=== PATIENT | male | born 1970 | race Caucasian/White ===

== ENCOUNTER → 2017-09-21 | Outpatient (CLI) | payer MEDICARE ==
--- NOTE | 2017-09-21 12:28 | XR ---
EXAMINATION TYPE: XR chest 2V DATE OF EXAM: 09/21/2017 COMPARISON: NONE HISTORY: Chronic cough TECHNIQUE: Frontal and lateral views of the chest are obtained. FINDINGS: There is no focal air space opacity, pleural effusion, or pneumothorax seen. There is min imal pulmonary vascular congestion throughout. Cardiac silhouette is upper limits of normal. The card iac silhouette size is within normal limits. The osseous structures are intact. Moderate multilevel degenerative changes of thoracic spine are noted. IMPRESSION: 1. No focal consolidation to suggest pneumonia. 2. Mild pulmonary vascular congestion. Cardiac silhouette is upper limits of normal in size and there fore this could be related to congestive heart failure. Echocardiogram could be performed.
== END | disposition home or self-care (01) ==
LOC: RADXRMAIN 12:07
PROVIDERS: ATTEND Family Medicine
DX: R05 Cough (principal)
CPT/HCPCS: 71046

== ENCOUNTER → 2017-10-16 | Outpatient (CLI) | payer MEDICARE ==
--- NOTE | 2017-10-17 08:47 | ECHOF ---
Referral Reason:Cardiomegaly I51.7 MEASUREMENTS -------- HEIGHT: 167.6 cm WEIGHT: 129.3 kg BP: 173/79 RVIDd: 3.0 cm (< 3.3) IVSd: 1.4 cm (0.6 - 1.1) LVIDd: 4.2 cm (3.9 - 5.3) LVPWd: 1.4 cm (0.6 - 1.1) IVSs: 2.0 cm LVIDs: 2.9 cm LVPWs: 1.8 cm LA Diam: 3.4 cm (2.7 - 3.8) LAESV Index (A-L): 21.95 ml/m Ao Diam: 3.4 cm (2.0 - 3.7) AV Cusp: 2.2 cm (1.5 - 2.6) MV EXCURSION: 14.837 mm (> 18.000) MV EF SLOPE: 82 mm/s (70 - 150) EPSS: 0.9 cm MV E Bull: 1.10 m/s MV DecT: 182 ms MV A Bull: 0.86 m/s MV E/A Ratio: 1.28 RAP: 5.00 mmHg RVSP: 34.70 mmHg FINDINGS -------- Sinus rhythm. This was a technically difficult study with suboptimal views. The left ventricular size is normal. There is moderate concentric left ventricular hypertrophy. O verall left ventricular systolic function is normal with, an EF between 60 - 65 %. The right ventricle is normal in size. Normal LA size by volume 22+/-6 ml/m2. The right atrium is normal in size. 3 ml of Lumason was utilized for enhancement of images. The aortic valve is trileaflet and appears structurally normal. Mild mitral annular calcification present. Mild tricuspid regurgitation present. There is mild pulmonary hypertension. The right ventricular systolic pressure, as measured by Doppler, is 34.70mmHg. The pulmonic valve was not well visualized. The aortic root size is normal. IVC Not well visulized. There is no pericardial effusion. CONCLUSIONS -------- 1. Sinus rhythm. 2. This was a technically difficult study with suboptimal views. 3. The left ventricular size is normal. 4. There is moderate concentric left ventricular hypertrophy. 5. Overall left ventricular systolic function is normal with, an EF between 60 - 65 %. 6. The right ventricle is normal in size. 7. Normal LA size by volume 22+/-6 ml/m2. 8. The right atrium is normal in size. 9. 3 ml of Lumason was utilized for enhancement of images. 10. The aortic valve is trileaflet and appears structurally normal. 11. Mild mitral annular calcification present. 12. Mild tricuspid regurgitation present. 13. There is mild pulmonary hypertension. 14. The right ventricular systolic pressure, as measured by Doppler, is 34.70mmHg. 15. The pulmonic valve was not well visualized. 16. The aortic root size is normal. 17. IVC Not well visulized. 18. There is no pericardial effusion. DIRECTOR OF QUALITY: Marta Mariscal RDCS
== END | disposition home or self-care (01) ==
LOC: RADECHMAIN 14:36
PROVIDERS: ATTEND Family Medicine
DX: I07.1 Rheumatic tricuspid insufficiency (principal); I27.20 Pulmonary hypertension, unspecified
CPT/HCPCS: C8929; Q9950; 93306

== ENCOUNTER → 2020-12-28 | Outpatient (CLI) | payer MEDICARE ==
--- NOTE | 2020-12-28 13:39 | US ---
EXAMINATION TYPE: US venous doppler duplex LE LT DATE OF EXAM: 12/28/2020 1:12 PM COMPARISON: NONE CLINICAL HISTORY: R60.0 Localized edema. Skin redness bilateral LE. SIDE PERFORMED: left TECHNIQUE: The lower extremity deep venous system is examined utilizing real time linear array sonog tiana with graded compression, doppler sonography and color-flow sonography. VESSELS IMAGED: Common Femoral Vein Deep Femoral Vein Greater Saphenous Vein * Femoral Vein Popliteal Vein Small Saphenous Vein * Proximal Calf Veins (* superficial vessels) Left Leg: Negative for DVT. Left groin lymph node seen = 2.2 x 1.6 x 1.1cm. Edema channels are seen in anterior skin area of lower leg. IMPRESSION: 1. Left lower extremity ultrasound negative for deep venous thrombosis. 2. Left inguinal lymph node
== END | disposition home or self-care (01) ==
LOC: RADUSWWP 12:42
PROVIDERS: ATTEND Family Medicine
DX: R59.0 Localized enlarged lymph nodes (principal)

== ENCOUNTER → 2021-01-02 | Outpatient (CLI) | payer MEDICARE | END | disposition home or self-care (01) | LOC: RADMRIMAIN 08:36 | PROVIDERS: ATTEND Family Medicine | DX: Z53.9 Procedure and treatment not carried out, unspecified reason (principal) ==

== ENCOUNTER → 2021-05-03 | Outpatient (CLI) | payer MEDICARE ==
--- NOTE | 2021-05-03 16:38 | US ---
EXAMINATION TYPE: US groin LT DATE OF EXAM: 05/03/2021 COMPARISON: US CLINICAL HISTORY: R59.0 Localized enlarged lymph nodes. Follow up lymph node in left groin Left groin scanned. Largest lymph node measured with short axis = 0.7 cm. IMPRESSION: 1. Small Left inguinal lymph node
== END | disposition home or self-care (01) ==
LOC: RADUSWWP 12:08
PROVIDERS: ATTEND Family Medicine
DX: R59.0 Localized enlarged lymph nodes (principal)

== ENCOUNTER 2022-01-20 10:39 | Inpatient (IN) | payer MEDICARE ==
[2022-01-20] MEDS ORDERED: SODIUM CHLORIDE 0.9% 500 ML 500 ML IV STA (10:57)
[2022-01-20] MEDS ORDERED: KETOROLAC 15 MG/ML 1 ML VIAL IVP STA (10:57)
--- NOTE | 2022-01-20 10:58 | ED ---
Abdominal Pain HPI - General Chief Complaint: Abdominal Pain Stated Complaint: R side pain Time Seen by Provider: 01/20/22 10:47 Source: patient, RN notes reviewed, old records reviewed Mode of arrival: ambulatory Limitations: no limitations - History of Present Illness Initial Comments: This is a well-appearing 52-year-old male that presents to emergency room with complaints of right upper quadrant sharp abdominal pain radiating towards his mid abdomen. He states that he was just sitting at work on Thursday when the pain started. He denies any fevers, no nausea or vomiting but states he has had 2 episodes of diarrhea today. Patient has no previous surgical history. He does have a history of diabetes. MD Complaint: abdominal pain -: days(s) (4) Location: RUQ Radiation: other (Umbilical) Severity scale (1-10): 4 Quality: sharp Consistency: constant Improves With: nothing Worsens With: movement, other (Palpation) Associated Symptoms: diarrhea (twice today brown) - Related Data Home Medications Medication Instructions Recorded Confirmed Atorvastatin [Lipitor] 10 mg PO HS 01/20/22 01/20/22 Dulaglutide [Trulicity] 1.5 mg SQ MO@2100 01/20/22 01/20/22 Furosemide [Lasix] 20 mg PO HS 01/20/22 01/20/22 Gabapentin [Neurontin] 800 mg PO TID 01/20/22 01/20/22 Insulin Glargine,Hum.rec.anlog 114 units SQ HS 01/20/22 01/20/22 [Toujeo Max Solostar] Levothyroxine Sodium 25 mcg PO HS 01/20/22 01/20/22 Pioglitazone [Actos] 30 mg PO HS 01/20/22 01/20/22 cloNIDine HCL 0.1 mg PO TID 01/20/22 01/20/22 hydroCHLOROthiazide [Hydrodiuril] 25 mg PO HS 01/20/22 01/20/22 traMADol HCL 100 mg PO TID 01/20/22 01/20/22 Allergies Allergy/AdvReac Type Severity Reaction Status Date / Time melon Allergy Anaphylaxis Verified 01/20/22 13:53 NAKUL Inhibitors AdvReac Cough Verified 01/20/22 13:53 Review of Systems ROS Statement: Those systems with pertinent positive or pertinent negative responses have been documented in the HPI. ROS Other: All systems not noted in ROS Statement are negative. Past Medical History Past Medical History: Diabetes Mellitus History of Any Multi-Drug Resistant Organisms: None Reported Past Surgical History: No Surgical Hx Reported Past Psychological History: No Psychological Hx Reported Smoking Status: Never smoker Past Alcohol Use History: None Reported Past Drug Use History: None Reported General Exam Limitations: no limitations General appearance: alert, in no apparent distress Head exam: Present: atraumatic, normal inspection Eye exam: Absent: scleral icterus, conjunctival injection, periorbital swelling ENT exam: Present: normal oropharynx, mucous membranes moist Neck exam: Present: normal inspection, full ROM. Absent: tenderness, meningismus, lymphadenopathy Respiratory exam: Present: normal lung sounds bilaterally. Absent: respiratory distress, wheezes, rales, rhonchi, stridor, chest wall tenderness, accessory m uscle use, decreased breath sounds Cardiovascular Exam: Present: regular rate GI/Abdominal exam: Present: soft, tenderness (Right upper quadrant). Absent: distended, guarding, rigid, mass Extremities exam: Present: full ROM, normal capillary refill. Absent: tenderness, pedal edema Neurological exam: Present: alert, oriented X3, normal gait Psychiatric exam: Present: normal affect, normal mood Skin exam: Present: warm, dry, intact, normal color. Absent: cyanosis, diaphoretic, erythema, petechiae, pallor, mottled Course Vital Signs 01/20/22 10:41 Temperature 98.4 F Pulse Rate 94 Respiratory 18 Rate Blood Pressure 130/81 O2 Sat by Pulse 97 Oximetry Medical Decision Making - Medical Decision Making CT shows inflammatory changes in the right upper quadrant with a markedly dilated gallbladder favoring acute cholecystitis. There is evidence of leukocytosis with a total bili of 2.3. Patient is afebrile and vital signs are stable. No nausea or vomiting. He states the pain has improved however remains with palpation. I did speak with Dr. Victoria who recommended patient be admitted and placed on clear liquid diet for acute cholecystitis. Case discussed with Dr. Jeter - Lab Data Result diagrams: 01/20/22 11:10 01/20/22 11:10 Lab Results 01/20/22 01/20/22 01/20/22 Range/Units 11:10 11:10 11:10 WBC 16.7 H (3.8-10.6) k/uL RBC 5.49 (4.30-5.90) m/uL Hgb 16.0 (13.0-17.5) gm/dL Hct 47.2 (39.0-53.0) % MCV 86.0 (80.0-100.0) fL MCH 29.0 (25.0-35.0) pg MCHC 33.8 (31.0-37.0) g/dL RDW 15.5 (11.5-15.5) % Plt Count 213 (150-450) k/uL MPV 7.2 Neutrophils % 87 % Lymphocytes % 6 % Monocytes % 5 % Eosinophils % 1 % Basophils % 0 % Neutrophils # 14.6 H (1.3-7.7) k/uL Lymphocytes # 0.9 L (1.0-4.8) k/uL Monocytes # 0.8 (0-1.0) k/uL Eosinophils # 0.1 (0-0.7) k/uL Basophils # 0.1 (0-0.2) k/uL Sodium 137 (137-145) mmol/L Potassium 3.3 L (3.5-5.1) mmol/L Chloride 97 L (98-107) mmol/L Carbon Dioxide 26 (22-30) mmol/L Anion Gap 14 mmol/L BUN 23 H (9-20) mg/dL Creatinine 1.02 (0.66-1.25) mg/dL Est GFR (CKD-EPI)AfAm >90 (>60 ml/min/1.73 sqM) Est GFR (CKD-EPI)NonAf 84 (>60 ml/min/1.73 sqM) Glucose 130 H (74-99) mg/dL Plasma Lactic Acid Frankie 1.7 (0.7-2.0) mmol/L Calcium 8.6 (8.4-10.2) mg/dL Total Bilirubin 2.3 H (0.2-1.3) mg/dL AST 24 (17-59) U/L ALT 19 (4-49) U/L Alkaline Phosphatase 83 (38-126) U/L Total Protein 7.4 (6.3-8.2) g/dL Albumin 4.0 (3.5-5.0) g/dL Amylase 32 (30-110) U/L Lipase 25 (23-300) U/L Disposition Clinical Impression: Acute cholecystitis Disposition: ADMITTED IP TO THIS HOSP Decision Date: 01/20/22 Decision Time: 13:11
[2022-01-20 11:35] LABS: Basophils # (A) 0.1 k/uL (0-0.2); Basophils % (A) 0 %; Eosinophils # (A) 0.1 k/uL (0-0.7); Eosinophils % (A) 1 %; HCT 47.2 % (39.0-53.0); Lymphocytes # (A) 0.9 k/uL (1.0-4.8); Lymphocytes % (A) 6 %; MCHC 33.8 g/dL (31.0-37.0); Mean Platelet Volume 7.2; Monocytes # (A) 0.8 k/uL (0-1.0); Monocytes % (A) 5 %; Neutrophils # (A) 14.6 k/uL (1.3-7.7); Neutrophils % (A) 87 %; Platelet Count 213 k/uL (150-450); RBC 5.49 m/uL (4.30-5.90); RDW 15.5 % (11.5-15.5); WBC 16.7 k/uL (3.8-10.6)
[2022-01-20 11:59] LABS: ALT 19 U/L (4-49); AST 24 U/L (17-59); African American GFR (CKD) >90 (>60 ml/min/1.73 sqM); Alkaline Phosphatase 83 U/L (38-126); Amylase 32 U/L (30-110); Anion Gap 14 mmol/L; Blood Urea Nitrogen 23 mg/dL (9-20); Calcium 8.6 mg/dL (8.4-10.2); Carbon Dioxide 26 mmol/L (22-30); Chloride 97 mmol/L (98-107); Glucose 130 mg/dL (74-99); Lipase 25 U/L (23-300); Non-African American GFR(CKD) 84 (>60 ml/min/1.73 sqM); Potassium 3.3 mmol/L (3.5-5.1); Sodium 137 mmol/L (137-145); Total Bilirubin 2.3 mg/dL (0.2-1.3); Total Protein 7.4 g/dL (6.3-8.2)
--- NOTE | 2022-01-20 12:46 | CT ---
EXAMINATION TYPE: CT abdomen pelvis w con DATE OF EXAM: 01/20/2022 COMPARISON: Pain HISTORY: Right upper quadrant pain CT DLP: 2525.1 mGycm Automated exposure control for dose reduction was used. CONTRAST: CT scan of the abdomen pelvis is performed with IV Contrast, patient injected with 100 mL of Isovue 3 00. FINDINGS- LUNG BASES-subsegmental consolidation bilateral lung bases correlate for atelectasis.. LIVER/GB-gallbladder markedly distended with numerous gallstones. There is some. He gallbladder infla mmatory change. This abuts up against the region of the splenic flexure of the colon. Question small amount of pericholecystic fluid. Calcifications in the left lobe of the liver PANCREAS- No gross abnormality is seen. Atrophy of the pancreatic head. SPLEEN- No gross abnormality is seen. Small accessory spleen noted. ADRENALS- No gross abnormality is seen. KIDNEYS/BLADDER- no hydronephrosis nephrolithiasis or renal mass. BOWEL-bowel gas pattern nonspecific with no obstruction. There is inflammatory change adjacent to the duodenum and splenic flexure of the colon most likely related to the gallbladder. LYMPH NODES- No greater than 1cm abdominal or pelvic lymph nodes areappreciated. OSSEOUS STRUCTURES-type atrophic and degenerative change.. OTHER- aorta normal caliber with no sizable free fluid or free air. Prostate calcification noted. IMPRESSION- 1. Markedly dilated gallbladder with inflammatory change in the right upper quadrant. Would favor acu te cholecystitis over duodenitis or peptic ulcer disease. There may be reactive or secondary mild hep atic flexure colitis. Correlate clinically.
[2022-01-20] MEDS ORDERED: PIPERACILLIN-TAZOBACTAM 3.375 GM in SODIUM CHLORIDE 0.9% 100 ML IVPB STA (13:11)
[2022-01-20] MEDS ORDERED: NALOXONE 0.4 MG/ML 1 ML VIAL IV PRN ×2 (13:12→16:30)
[2022-01-20] MEDS ORDERED: HYDROmorphone 0.5 MG/0.5 ML SYRINGE IVP PRN ×2 (13:12→16:30)
[2022-01-20] MEDS ORDERED: ACETAMINOPHEN TAB 325 MG TAB PO PRN (13:12)
[2022-01-20] MEDS ORDERED: POTASSIUM CHLORIDE ER 20 MEQ TAB.ER PO STA (13:50)
--- NOTE | 2022-01-20 14:02 | P.GSHP ---
History of Present Illness H&P Date: 01/20/22 CHIEF COMPLAINT: Abdominal pain HISTORY OF PRESENT ILLNESS: This is a 52-year-old male who presented to the ER with complaints of right upper quadrant abdominal pain that started 2 days ago. Patient reports Thursday morning he ate a breakfast [place] and by the evening he was having severe right upper quadrant abdominal pain. He also had vomiting. The pain radiated to the back and into the right shoulder. He was rating his pain 10 out of 10. Patient presents to the ER today due to no improvement in his pain. He has had improvement in the pain after receiving pain medications in the ER. He denies any fever chills or sweats. Denies ever having pain like this before. He reports no appetite since appetite Thursday. He denies any prior abdominal surgeries. Denies any cardiac history. Computed tomography scan of the abdomen and pelvis demonstrated markedly dilated gallbladder with inflammatory change in the right upper quadrant. Would favor acute cholecystitis over duodenitis or peptic ulcer disease. There may be reactive or secondary mild hepatic flexure colitis. Patient does have elevated white count. He was started on IV antibiotics in the ER. PAST MEDICAL HISTORY: Diabetes mellitus, hypertension, hyperlipidemia PAST SURGICAL HISTORY: none MEDICATIONS: See list. ALLERGIES: See list. SOCIAL HISTORY: No illicit drug use. Denies ETOH use or tobacco use REVIEW OF SYSTEMS: CONSTITUTIONAL: Denies fever or chills. HEENT: Denies blurred vision, vision changes, or eye pain. Denies hemoptysis CARDIOVASCULAR: Denies chest pain or pressure. RESPIRATORY: No shortness of breath. GASTROINTESTINAL: See HPI for pertinent findings HEMATOLOGIC: Denies bleeding disorders. GENITOURINARY: Denies any blood in urine or increased urinary frequency. SKIN: Denies pruitis. Denies rash. PHYSICAL EXAM: VITAL SIGNS: Reviewed GENERAL: Well-developed in no acute distress. HEENT: No sclera icterus. Extraocular movements grossly intact. Moist buccal mucosa. Head is atraumatic, normocephalic. No nasal drainage. ABDOMEN: Soft. Nondistended. Right upper quadrant tenderness with palpation NEUROLOGIC: Alert and oriented. Cranial nerves II through XII grossly intact. LABORATORY DATA: WBC 16.7 Hgb 16.0 platelets 213 Sodium 137 potassium 3.3 creatinine 1.02 Lactic acid 1.7 Total bilirubin 2.3 AST 24 ALT 19 alk phos 83 Lipase 25 IMAGING: Computed tomography scan abdomen and pelvis as stated above ASSESSMENT: 1. Acute cholecystitis with Right upper quadrant abdominal pain and markedly dilated gallbladder with inflammatory changes noted on CAT scan 2. Elevated total bilirubin 3. Hypokalemia PLAN: -Further recommendations forthcoming per surgeon -Continue IV Zosyn -Continue IV fluids -Continue pain medication as needed -Continue antiemetics as needed -Replace potassium -Consult medical service for medical management -Continue clear liquid diet Physician Paint Roller Covermaker note has been reviewed by physician. Signing provider agrees with the documented findings, assessment, and plan of care. Past Medical History Past Medical History: Diabetes Mellitus History of Any Multi-Drug Resistant Organisms: None Reported Past Surgical History: No Surgical Hx Reported Past Psychological History: No Psychological Hx Reported Smoking Status: Never smoker Past Alcohol Use History: None Reported Past Drug Use History: None Reported Medications and Allergies Home Medications Medication Instructions Recorded Confirmed Type Atorvastatin [Lipitor] 10 mg PO HS 01/20/22 01/20/22 History Dulaglutide [Trulicity] 1.5 mg SQ MO@2100 01/20/22 01/20/22 History Furosemide [Lasix] 20 mg PO HS 01/20/22 01/20/22 History Gabapentin [Neurontin] 800 mg PO TID 01/20/22 01/20/22 History Insulin Glargine,Hum.rec.anlog 114 units SQ 01/20/22 01/20/22 History [Toujeo Max Solostar] Levothyroxine Sodium 25 mcg PO 01/20/22 01/20/22 History Pioglitazone [Actos] 30 mg PO 01/20/22 01/20/22 History cloNIDine HCL 0.1 mg PO TID 01/20/22 01/20/22 History hydroCHLOROthiazide [Hydrodiuril] 25 mg PO 01/20/22 01/20/22 History traMADol HCL 100 mg PO TID 01/20/22 01/20/22 History Allergies Allergy/AdvReac Type Severity Reaction Status Date / Time melon Allergy Anaphylaxis Verified 01/20/22 13:53 NAKUL Inhibitors AdvReac Cough Verified 01/20/22 13:53 Surgical - Exam Vital Signs Temp Pulse Resp BP Pulse Ox 98.4 F 94 18 130/81 97 01/20/22 10:41 01/20/22 10:41 01/20/22 10:41 01/20/22 10:41 01/20/22 10:41 Results - Labs 01/20/22 11:10 01/20/22 11:10 Abnormal Lab Results - Last 24 Hours (Table) 01/20/22 01/20/22 Range/Units 11:10 11:10 WBC 16.7 H (3.8-10.6) k/uL Neutrophils # 14.6 H (1.3-7.7) k/uL Lymphocytes # 0.9 L (1.0-4.8) k/uL Potassium 3.3 L (3.5-5.1) mmol/L Chloride 97 L (98-107) mmol/L BUN 23 H (9-20) mg/dL Glucose 130 H (74-99) mg/dL Total Bilirubin 2.3 H (0.2-1.3) mg/dL Diabetes panel 01/20/22 Range/Units 11:10 Sodium 137 (137-145) mmol/L Potassium 3.3 L (3.5-5.1) mmol/L Chloride 97 L (98-107) mmol/L Carbon Dioxide 26 (22-30) mmol/L BUN 23 H (9-20) mg/dL Creatinine 1.02 (0.66-1.25) mg/dL Glucose 130 H (74-99) mg/dL Calcium 8.6 (8.4-10.2) mg/dL AST 24 (17-59) U/L ALT 19 (4-49) U/L Alkaline Phosphatase 83 (38-126) U/L Total Protein 7.4 (6.3-8.2) g/dL Albumin 4.0 (3.5-5.0) g/dL Calcium panel 01/20/22 Range/Units 11:10 Calcium 8.6 (8.4-10.2) mg/dL Albumin 4.0 (3.5-5.0) g/dL Pituitary panel 01/20/22 Range/Units 11:10 Sodium 137 (137-145) mmol/L Potassium 3.3 L (3.5-5.1) mmol/L Chloride 97 L (98-107) mmol/L Carbon Dioxide 26 (22-30) mmol/L BUN 23 H (9-20) mg/dL Creatinine 1.02 (0.66-1.25) mg/dL Glucose 130 H (74-99) mg/dL Calcium 8.6 (8.4-10.2) mg/dL Adrenal panel 01/20/22 Range/Units 11:10 Sodium 137 (137-145) mmol/L Potassium 3.3 L (3.5-5.1) mmol/L Chloride 97 L (98-107) mmol/L Carbon Dioxide 26 (22-30) mmol/L BUN 23 H (9-20) mg/dL Creatinine 1.02 (0.66-1.25) mg/dL Glucose 130 H (74-99) mg/dL Calcium 8.6 (8.4-10.2) mg/dL Total Bilirubin 2.3 H (0.2-1.3) mg/dL AST 24 (17-59) U/L ALT 19 (4-49) U/L Alkaline Phosphatase 83 (38-126) U/L Total Protein 7.4 (6.3-8.2) g/dL Albumin 4.0 (3.5-5.0) g/dL
[2022-01-20 14:26] LABS: Appearance,Urine Clear (Clear); Bilirubin,Urine Negative (Negative); Blood,Urine Trace (Negative); Color,Urine Yellow; Glucose,Urine (UA) Negative (Negative); Ketones,Urine Trace (Negative); Leukocyte Esterase,Urine Negative (Negative); Mucus,Urine Rare /hpf; Nitrite,Urine Negative (Negative); Protein,Urine 1+ (Negative); RBC,Urine 1 /hpf (0-5); WBC,Urine 1 /hpf (0-5)
[2022-01-20 14:38] LABS: Specific Gravity,Urine >1.050 (1.001-1.035)
[2022-01-20] MEDS ORDERED: LACTATED RINGERS 1,000 ML IV ONE ×2 (15:15→16:30)
[2022-01-20 15:18] LABS: Glucose,Whole Blood 96 mg/dL (70-110)
[2022-01-20] MEDS ORDERED: BUPIVACAINE (PF) 0.25% 30 ML VIAL SQ ONE ×2 (15:22→15:50)
[2022-01-20] MEDS ORDERED: HEPARIN SODIUM,PORCINE/PF 5,000 UNIT/0.5 ML SYRINGE SQ ONE (15:23)
[2022-01-20] MEDS ORDERED: ONDANSETRON 4 MG/2 ML VIAL ONE (15:23)
[2022-01-20] MEDS ORDERED: SUCCINYLCHOLINE CHLORIDE 200 MG/10 ML VIAL IV ONE (15:26)
[2022-01-20] MEDS ORDERED: MIDAZOLAM 2 MG/2 ML VIAL ONE (15:26)
[2022-01-20] MEDS ORDERED: DEXAMETHASONE SOD PHOSPHATE 4 MG/ML 1 ML VIAL IV ONE (15:26)
[2022-01-20] MEDS ORDERED: fentaNYL (PF) 50 MCG/ML 2 ML AMP ONE (15:26)
[2022-01-20] MEDS ORDERED: GLYCOPYRROLATE 0.2 MG/ML 2 ML VIAL ONE (15:26)
[2022-01-20] MEDS ORDERED: PROPOFOL 10 MG/ML 20 ML VIAL IV ONE (15:26)
[2022-01-20] MEDS ORDERED: LIDOCAINE 2% INJ 20 MG/ML (2 ML VIAL) ONE (15:26)
[2022-01-20] MEDS ORDERED: ROCURONIUM 10 MG/ML (5 ML VIAL) IV ONE (15:26)
[2022-01-20] MEDS ORDERED: NEOSTIGMINE 1 MG/ML 10 ML VIAL ONE (15:26)
[2022-01-20] MEDS ORDERED: BUPIVACAINE (PF) 0.5% 30 ML VIAL SQ ONE (15:50)
[2022-01-20] MEDS ORDERED: ONDANSETRON 4 MG/2 ML VIAL IVP PRN (16:30)
--- NOTE | 2022-01-20 16:30 | P.OP ---
Date of Procedure: 01/20/22 Preoperative Diagnosis: Acute cholecystitis Postoperative Diagnosis: Acute gangrenous cholecystitis Procedure(s) Performed: Laparoscopic cholecystectomy with drain placement Anesthesia: JOELLE Surgeon: Cleve Victoria Estimated Blood Loss (ml): 25 Pathology: other (Gallbladder) Condition: stable Disposition: PACU Description of Procedure: The patient was placed on the operating table. The patient received a general endotracheal tube anesthesia. The patients abdomen was prepped and draped in the usual sterile fashion. Through an infraumbilical stab incision, the fascia of the anterior abdominal wall was grasped with a pair of Kochers and then the Veress needle was placed in the peritoneal cavity. Position of the Veress needle was confirmed with positive drop test. The abdomen was then insufflated. After adequate insufflation, the 10 mm trocar was placed in the peritoneal cavity. Following this the laparoscope was placed in the peritoneal cavity. The patient was placed in the head-up, right side up position and then a 5 mm trocar was placed in the right lateral and right subcostal position under direct visualization. A 8 mm trocar was placed in the epigastric position. The gallbladder is visualized. There was necrosis of the gallbladder. The omentum was detached the gallbladder was dissected with blunt dissection. The gallbladder was grasped in the fundus and infundibulum. Traction on the gallbladder was placed in the lateral and the cephalad positions. The triangle of Calot was visualized.. The cystic duct was bluntly dissected until the union of the cystic duct and common bile duct was seen. A critical view of safety was achieved. The cystic duct was then divided and sealed with the Harmonic scissors. A PDS Endoloop was then placed throughout the cystic duct stump. The cystic artery divided and sealed with the Harmonic scissors. The gallbladder was then removed from the liver bed using Harmonic scissors. The gallbladder was then extracted through the epigastric port site. Operative field was checked for any bleeding spots and Harmonic scissors was used to coagulate the liver bed. The abdomen was irrigated. A HATTIE drains placed in the gallbladder fossa and brought out through the lateral port site. The trocars were removed. The skin was closed using interrupted 3-0 Vicryl suture. Dermabond dressing were applied. The patient tolerated the procedure well.
[2022-01-20] MEDS ORDERED: DEXTROSE 50% SYRINGE 50 ML IVP PRN ×2 (18:19)
[2022-01-20] MEDS: SODIUM CHLORIDE 0.9% 1,000 ML IV SCH (18:20)
[2022-01-20] MEDS: KETOROLAC 15 MG/ML 1 ML VIAL IVP SCH ×2 (18:20→22:57)
[2022-01-20] MEDS: GABAPENTIN 400 MG CAP PO SCH (19:14)
[2022-01-20] MEDS: traMADol 50 MG TAB PO SCH (19:14)
[2022-01-20] MEDS: ATORVASTATIN 10 MG TAB PO SCH (19:15)
[2022-01-20] MEDS: cloNIDine HCL 0.1 MG TAB PO SCH (19:15)
[2022-01-20] MEDS: LEVOTHYROXINE 25 MCG TAB PO SCH (19:15)
[2022-01-20] MEDS: DOCUSATE 100 MG CAP PO SCH (19:16)
[2022-01-20 20:53] LABS: Glucose,Whole Blood 144 mg/dL (70-110)
[2022-01-20] MEDS: INSULIN ASPART (NovoLOG) 100 UNIT/ML VIAL SQ SCH (20:56)
[2022-01-20] MEDS: PIPERACILLIN-TAZOBACTAM 3.375 GM in SODIUM CHLORIDE 0.9% 100 ML IVPB SCH (22:57)
[2022-01-21] MEDS: SODIUM CHLORIDE 0.9% 1,000 ML IV SCH ×2 (03:16→16:27)
[2022-01-21] MEDS: KETOROLAC 15 MG/ML 1 ML VIAL IVP SCH ×4 (05:08→19:57)
[2022-01-21 06:27] LABS: Basophils % (A) 0 %; Eosinophils # (A) 0.1 k/uL (0-0.7); Eosinophils % (A) 1 %; HCT 43.5 % (39.0-53.0); HGB 13.9 gm/dL (13.0-17.5); Lymphocytes # (A) 0.7 k/uL (1.0-4.8); Lymphocytes % (A) 5 %; MCH 27.4 pg (25.0-35.0); MCHC 31.9 g/dL (31.0-37.0); MCV 86.1 fL (80.0-100.0); Mean Platelet Volume 7.4; Monocytes # (A) 0.6 k/uL (0-1.0); Monocytes % (A) 5 %; Neutrophils # (A) 11.3 k/uL (1.3-7.7); Neutrophils % (A) 88 %; Platelet Count 200 k/uL (150-450); RBC 5.05 m/uL (4.30-5.90); WBC 12.8 k/uL (3.8-10.6)
[2022-01-21 06:43] LABS: ALT 77 U/L (4-49); AST 113 U/L (17-59); African American GFR (CKD) >90 (>60 ml/min/1.73 sqM); Albumin 3.3 g/dL (3.5-5.0); Alkaline Phosphatase 216 U/L (38-126); Anion Gap 14 mmol/L; Blood Urea Nitrogen 25 mg/dL (9-20); Carbon Dioxide 23 mmol/L (22-30); Chloride 101 mmol/L (98-107); Globulin 3.2 g/dL; Glucose 171 mg/dL (74-99); Non-African American GFR(CKD) >90 (>60 ml/min/1.73 sqM); Potassium 4.1 mmol/L (3.5-5.1); Sodium 138 mmol/L (137-145); Total Bilirubin 2.4 mg/dL (0.2-1.3); Total Protein 6.5 g/dL (6.3-8.2)
[2022-01-21 07:02] LABS: Glucose,Whole Blood 160 mg/dL (70-110)
[2022-01-21] MEDS: ENOXAPARIN 40 MG/0.4 ML SYRINGE SQ SCH (07:35)
[2022-01-21] MEDS: cloNIDine HCL 0.1 MG TAB PO SCH ×3 (07:35→19:56)
[2022-01-21] MEDS: DOCUSATE 100 MG CAP PO SCH ×2 (07:35→19:56)
[2022-01-21] MEDS: traMADol 50 MG TAB PO SCH ×3 (07:36→19:54)
[2022-01-21] MEDS: PIPERACILLIN-TAZOBACTAM 3.375 GM in SODIUM CHLORIDE 0.9% 100 ML IVPB SCH ×3 (07:36→23:06)
[2022-01-21] MEDS: GABAPENTIN 400 MG CAP PO SCH ×3 (07:36→19:55)
[2022-01-21] MEDS: INSULIN ASPART (NovoLOG) 100 UNIT/ML VIAL SQ SCH ×4 (07:37→21:32)
[2022-01-21] MEDS ORDERED: HYDROcodone/APAP 5-325MG 1 EACH TAB PO PRN (08:01)
[2022-01-21 11:46] LABS: Glucose,Whole Blood 176 mg/dL (70-110)
--- NOTE | 2022-01-21 12:46 | P.PN ---
Subjective Progress Note Date: 01/21/22 CHIEF COMPLAINT: Gangrenous cholecystitis HISTORY OF PRESENT ILLNESS: Patient is postop day #1 status post laparoscopic cholecystectomy with drain placement. Patient reports his pain is controlled. He denies any nausea or vomiting. No flatus. He has been up and ambulating. Afebrile. WBC is trending down from 16.7-12.8. Hgb 13.9 creatinine 0.97 potassium 4.1 total bilirubin 2.4 LFTs elevated at AST 113 ALT 77 alk phos 216 PHYSICAL EXAM: VITAL SIGNS: Reviewed. GENERAL: Well-developed in no acute distress. HEENT: No sclera icterus. Extraocular movements grossly intact. Moist buccal mucosa. Head is atraumatic, normocephalic. ABDOMEN: Soft. Nondistended. Incision sites clean dry and intact NEUROLOGIC: Alert and oriented. Cranial nerves II through XII grossly intact. ASSESSMENT: 1. Acute gangrenous cholecystitis status post laparoscopic cholecystectomy 2. Elevated LFTs and total bilirubin 3. Cholelithiasis PLAN: -Continue antibiotics -Continue supportive care -Repeat LFTs in a.m. -Continue pain management -Continue regular diet -Anticipate discharge possibly tomorrow -DVT prophylaxis Lovenox Physician Field Marketing Lead note has been reviewed by physician. Signing provider agrees with the documented findings, assessment, and plan of care. Objective - Vital Signs Vital signs: Vital Signs Temp 98.2 F 01/21/22 07:00 Pulse 72 01/21/22 07:00 Resp 16 01/21/22 07:00 BP 115/65 01/21/22 07:00 Pulse Ox 97 01/21/22 07:00 FiO2 Intake & Output 01/20/22 01/21/22 01/21/22 18:59 06:59 18:59 Intake Total 600 Output Total 75 60 40 Balance 525 -60 -40 Weight 136.078 kg Intake: IV 600 Output: Drainage 60 40 Right Lower Abdomen 60 40 Estimated Blood Loss 75 Other: Voiding Method Toilet Toilet # Voids 1 - Labs CBC & Chem 7: 01/21/22 06:11 01/21/22 06:11 Labs: Abnormal Lab Results - Last 24 Hours (Table) 01/20/22 01/20/22 01/21/22 Range/Units 11:10 20:52 06:11 WBC 12.8 H (3.8-10.6) k/uL Neutrophils # 11.3 H (1.3-7.7) k/uL Lymphocytes # 0.7 L (1.0-4.8) k/uL BUN (9-20) mg/dL Glucose (74-99) mg/dL POC Glucose (mg/dL) 144 H (70-110) mg/dL Calcium (8.4-10.2) mg/dL Total Bilirubin (0.2-1.3) mg/dL AST (17-59) U/L ALT (4-49) U/L Alkaline Phosphatase (38-126) U/L Albumin (3.5-5.0) g/dL Ur Specific [place] >1.050 H (1.001-1.035) Urine Protein 1+ H (Negative) Urine Ketones Trace H (Negative) Urine Blood Trace H (Negative) Urine Mucus Rare H (None) /hpf 01/21/22 01/21/22 01/21/22 Range/Units 06:11 07:00 11:44 WBC (3.8-10.6) k/uL Neutrophils # (1.3-7.7) k/uL Lymphocytes # (1.0-4.8) k/uL BUN 25 H (9-20) mg/dL Glucose 171 H (74-99) mg/dL POC Glucose (mg/dL) 160 H 176 H (70-110) mg/dL Calcium 8.0 L (8.4-10.2) mg/dL Total Bilirubin 2.4 H (0.2-1.3) mg/dL AST 113 H (17-59) U/L ALT 77 H (4-49) U/L Alkaline Phosphatase 216 H (38-126) U/L Albumin 3.3 L (3.5-5.0) g/dL Ur Specific [place] (1.001-1.035) Urine Protein (Negative) Urine Ketones (Negative) Urine Blood (Negative) Urine Mucus (None) /hpf
--- NOTE | 2022-01-21 14:43 | P.CONS ---
History of Present Illness - Reason for Consult Consult date: 01/21/22 Medical management, postop cholecystectomy, history of diabetes - History of Present Illness This is a pleasant 52-year-old male who was recently admitted under surgical services and underwent laparoscopic cholecystectomy with drain placement with Dr. Victoria. Patient had acute gangrenous cholecystitis and also noted to have elevated LFTs and total bili with cholelithiasis. Patient follows with Dr. Meza in the outpatient setting with a past medical history of diabetes mellitus and is insulin-dependent. Patient reports his pain is currently manageable and reports mostly belching with no reports of gas or bowel movement as of yet. Patient is urinating and denies difficulty with urination. WBC was elevated on admission and trending down and is currently 12.8 today. Total bili is 2.4 and LFTs are noted to and AST of 113 and ALT 77 which is increased from yesterday. Recommend continuing gentle IV hydration with repeat labs in the morning. Patient with an incentive spirometer at the bedside and encourage the patient continue using at least 10 times every hour while awake. GI and DVT prophylaxis per primary. Recommend continue with Accu-Cheks before meals and at bedtime and sliding scale for now. Patient is maintained on clear liquid diet and tolerating. Advancing diet being done by general surgery. Review Of Systems: Constitutional: No fever, no chills, no night sweats. No weight change. No weakness, fatigue or lethargy. No daytime sleepiness. EENT: No headache. No blurred vision or double vision, no loss of vision. No loss of Hearing, no ringing in the ears, no dizziness. No nasal drainage or congestion. No epistaxis. No sore throat. Lungs: No shortness of breath, cough, no sputum production. No wheezing. Cardiovascular: No chest pain, no lower extremity edema. No palpitations. No paroxysmal nocturnal dyspnea. No orthopnea. No lightheadedness or dizziness. No syncopal episodes. Abdominal: Reports mild abdominal pain. No nausea, vomiting. No diarrhea. No constipation. No bloody or tarry stools.. No loss of appetite. Reports belching with no reports of gas or bowel movement Genitourinary: No dysuria, increased frequency, urgency. No urinary retention. Musculoskeletal: No myalgias. No muscle weakness, no gait dysfunction, no frequent falls. No back pain. No neck pain. Integumentary: No wounds, no lesions. No rash or pruritus. No unusual bruising. No change in hair or nails. Neurologic: No aphasia. No facial droop. No change in mentation. No head injury. No headache. No paralysis. No paresthesia. Psychiatric: No depression. No anxiety. No mood swings. Endocrine: No abnormal blood sugars. No weight change. No excessive sweating or thirst. No cold intolerance. PHYSICAL EXAMINATION: GENERAL: The patient is alert and oriented x4, Well developed, well nourished. Morbidly obese. HEENT: Pupils are round and equally reacting to light. EOMI. no scleral icterus. No conjunctival pallor. Normocephalic, atraumatic. No pharyngeal erythema. No thyromegaly. CARDIOVASCULAR: S1 and S2 muffled PULMONARY: diminished breath sounds bilaterally with no wheezing or rhonchi noted. ABDOMEN: soft. Mildly tender on exam. obese. non-distended, sluggish bowel sounds. No palpable organomegaly. MUSCULOSKELETAL: No joint swelling or deformity. EXTREMITIES: No cyanosis, clubbing, or pedal edema. NEUROLOGICAL: Gross neurological examination did not reveal any focal deficits. SKIN: No rashes. 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 Recommend repeat labs to monitor LFTs along with CBC and BMP in the morning Encouraged increased activity as tolerated Patient with an incentive spirometer at the bedside and encouraged to use at least 10 times every hour while awake Patient is a known diabetic with insulin-dependent in the outpatient setting and will continue sliding scale and Accu-Cheks before meals and at bedtime Thank you for this consultation and we will continue to follow along with general surgery during hospitalization. Recommend outpatient follow-up with primary care provider Dr. Yessica Meza The impression and plan of care has been dictated by Manda Dorado, nurse practitioner as directed. Dr. Gonzalo HUTTON I have performed a history and examination and MDM of this patient, discussed the same with the dictator, and agree with the dictator's assessment and plan as written ,documented as a scribe. Based on total visit time, I have performed more than 50% of the visit. Any additional findings or plans will be noted. Past Medical History Past Medical History: Diabetes Mellitus Additional Past Medical History / Comment(s): neuropathy of bilat legs History of Any Multi-Drug Resistant Organisms: None Reported Past Surgical History: No Surgical Hx Reported Additional Past Surgical History / Comment(s): partial thyroidectomy. Past Anesthesia/Blood Transfusion Reactions: No Reported Reaction Past Psychological History: No Psychological Hx Reported Smoking Status: Never smoker Past Alcohol Use History: None Reported Past Drug Use History: None Reported Medications and Allergies Home Medications Medication Instructions Recorded Confirmed Type Atorvastatin [Lipitor] 10 mg PO HS 01/20/22 01/20/22 History Dulaglutide [Trulicity] 1.5 mg SQ MO@2100 01/20/22 01/20/22 History Furosemide [Lasix] 20 mg PO HS 01/20/22 01/20/22 History Gabapentin [Neurontin] 800 mg PO TID 01/20/22 01/20/22 History Insulin Glargine,Hum.rec.anlog 114 units SQ 01/20/22 01/20/22 History [Toujeo Max Solostar] Levothyroxine Sodium 25 mcg PO HS 01/20/22 01/20/22 History Pioglitazone [Actos] 30 mg PO HS 01/20/22 01/20/22 History cloNIDine HCL 0.1 mg PO TID 01/20/22 01/20/22 History hydroCHLOROthiazide [Hydrodiuril] 25 mg PO HS 01/20/22 01/20/22 History traMADol HCL 100 mg PO TID 01/20/22 01/20/22 History Allergies Allergy/AdvReac Type Severity Reaction Status Date / Time melon Allergy Anaphylaxis Verified 01/20/22 15:07 NAKUL Inhibitors AdvReac Cough Verified 01/20/22 15:07 Physical Exam Vitals: Vital Signs Temp Pulse Pulse Pulse Resp BP BP 01/21/22 07:00 98.2 F 72 16 115/65 01/21/22 01:52 98.2 F 86 19 191/68 01/20/22 23:00 01/20/22 21:47 80 16 158/78 01/20/22 20:47 16 163/80 01/20/22 19:47 66 17 146/75 01/20/22 19:16 68 18 135/75 01/20/22 18:46 98.6 F 70 16 165/90 01/20/22 18:27 16 01/20/22 18:16 70 16 156/83 01/20/22 18:01 78 16 146/74 01/20/22 17:46 75 18 135/78 01/20/22 17:31 77 16 146/66 01/20/22 17:16 75 F L 75 16 155/67 01/20/22 17:00 75 16 156/66 01/20/22 16:45 77 16 156/67 01/20/22 16:39 97 F L 80 16 154/67 01/20/22 15:09 97.4 F L 77 18 138/63 01/20/22 14:55 71 18 123/67 01/20/22 10:41 98.4 F 94 18 130/81 Pulse Ox 01/21/22 07:00 97 01/21/22 01:52 91 L 01/20/22 23:00 95 01/20/22 21:47 96 01/20/22 20:47 01/20/22 19:47 93 L 01/20/22 19:16 94 L 01/20/22 18:46 93 L 01/20/22 18:27 90 L 01/20/22 18:16 89 L 01/20/22 18:01 90 L 01/20/22 17:46 90 L 01/20/22 17:31 97 01/20/22 17:16 97 01/20/22 17:00 97 01/20/22 16:45 97 01/20/22 16:39 97 01/20/22 15:09 95 01/20/22 14:55 99 01/20/22 10:41 97 Intake and Output 01/20/22 01/21/22 01/21/22 22:59 06:59 14:59 Intake Total 600 Output Total 75 60 20 Balance 525 -60 -20 Intake: IV 600 Output: Drainage 60 20 Right Lower Abdomen 60 20 Estimated Blood Loss 75 Other: Voiding Method Toilet Toilet # Voids 1 Weight 136.078 kg Results CBC & Chem 7: 01/21/22 06:11 01/21/22 06:11 Labs: Abnormal Lab Results - Last 24 Hours (Table) 01/20/22 01/20/22 01/20/22 Range/Units 11:10 11:10 11:10 WBC 16.7 H (3.8-10.6) k/uL Neutrophils # 14.6 H (1.3-7.7) k/uL Lymphocytes # 0.9 L (1.0-4.8) k/uL Potassium 3.3 L (3.5-5.1) mmol/L Chloride 97 L (98-107) mmol/L BUN 23 H (9-20) mg/dL Glucose 130 H (74-99) mg/dL POC Glucose (mg/dL) (70-110) mg/dL Calcium (8.4-10.2) mg/dL Total Bilirubin 2.3 H (0.2-1.3) mg/dL AST (17-59) U/L ALT (4-49) U/L Alkaline Phosphatase (38-126) U/L Albumin (3.5-5.0) g/dL Ur Specific [place] >1.050 H (1.001-1.035) Urine Protein 1+ H (Negative) Urine Ketones Trace H (Negative) Urine Blood Trace H (Negative) Urine Mucus Rare H (None) /hpf 01/20/22 01/21/22 01/21/22 Range/Units 20:52 06:11 06:11 WBC 12.8 H (3.8-10.6) k/uL Neutrophils # 11.3 H (1.3-7.7) k/uL Lymphocytes # 0.7 L (1.0-4.8) k/uL Potassium (3.5-5.1) mmol/L Chloride (98-107) mmol/L BUN 25 H (9-20) mg/dL Glucose 171 H (74-99) mg/dL POC Glucose (mg/dL) 144 H (70-110) mg/dL Calcium 8.0 L (8.4-10.2) mg/dL Total Bilirubin 2.4 H (0.2-1.3) mg/dL AST 113 H (17-59) U/L ALT 77 H (4-49) U/L Alkaline Phosphatase 216 H (38-126) U/L Albumin 3.3 L (3.5-5.0) g/dL Ur Specific [place] (1.001-1.035) Urine Protein (Negative) Urine Ketones (Negative) Urine Blood (Negative) Urine Mucus (None) /hpf 01/21/22 Range/Units 07:00 WBC (3.8-10.6) k/uL Neutrophils # (1.3-7.7) k/uL Lymphocytes # (1.0-4.8) k/uL Potassium (3.5-5.1) mmol/L Chloride (98-107) mmol/L BUN (9-20) mg/dL Glucose (74-99) mg/dL POC Glucose (mg/dL) 160 H (70-110) mg/dL Calcium (8.4-10.2) mg/dL Total Bilirubin (0.2-1.3) mg/dL AST (17-59) U/L ALT (4-49) U/L Alkaline Phosphatase (38-126) U/L Albumin (3.5-5.0) g/dL Ur Specific [place] (1.001-1.035) Urine Protein (Negative) Urine Ketones (Negative) Urine Blood (Negative) Urine Mucus (None) /hpf Assessment and Plan Time with Patient: Greater than 30
[2022-01-21 16:46] LABS: Glucose,Whole Blood 153 mg/dL (70-110)
[2022-01-21] MEDS: ATORVASTATIN 10 MG TAB PO SCH (19:56)
[2022-01-21] MEDS: LEVOTHYROXINE 25 MCG TAB PO SCH (20:04)
[2022-01-21 21:22] LABS: Glucose,Whole Blood 159 mg/dL (70-110)
[2022-01-22] MEDS: KETOROLAC 15 MG/ML 1 ML VIAL IVP SCH ×2 (05:14→11:45)
[2022-01-22] MEDS: SODIUM CHLORIDE 0.9% 1,000 ML IV SCH (05:15)
[2022-01-22 06:53] LABS: Glucose,Whole Blood 118 mg/dL (70-110)
[2022-01-22] MEDS: INSULIN ASPART (NovoLOG) 100 UNIT/ML VIAL SQ SCH ×2 (07:02→11:39)
[2022-01-22] MEDS: cloNIDine HCL 0.1 MG TAB PO SCH (07:21)
[2022-01-22] MEDS: GABAPENTIN 400 MG CAP PO SCH (07:21)
[2022-01-22] MEDS: DOCUSATE 100 MG CAP PO SCH (07:21)
[2022-01-22] MEDS: traMADol 50 MG TAB PO SCH (07:21)
[2022-01-22] MEDS: ENOXAPARIN 40 MG/0.4 ML SYRINGE SQ SCH (07:22)
[2022-01-22] MEDS: PIPERACILLIN-TAZOBACTAM 3.375 GM in SODIUM CHLORIDE 0.9% 100 ML IVPB SCH (07:22)
[2022-01-22 09:13] LABS: Albumin 3.1 g/dL (3.8-4.9); Albumin/Globulin Ratio 1.11 (1.60-3.17); Anion Gap 12.4 mmol/L (10.00-18.00); BUN/Creat Ratio 25.64 Ratio (12.00-20.00); Basophils # (A) 0.04 X 10*3/uL (0.00-0.10); Basophils % (A) 0.4 %; Blood Urea Nitrogen 28.2 mg/dL (9.0-27.0); Carbon Dioxide 24.6 mmol/L (20.0-27.5); Eosinophils # (A) 0.33 X 10*3/uL (0.04-0.35); Eosinophils % (A) 3.5 %; Globulin 2.8 g/dL (1.6-3.3); HCT 38.7 % (39.6-50.0); HGB 12.9 g/dL (13.0-17.0); Immature Grans, Automated 0.6 %; Lymphocytes # (A) 1.44 X 10*3/uL (0.90-5.00); Lymphocytes % (A) 15.4 %; MCHC 33.3 g/dL (32.0-37.0); MCV 83.9 fL (80.0-97.0); Mean Platelet Volume 10.5 fL (9.5-12.2); Monocytes # (A) 0.65 X 10*3/uL (0.20-1.00); NRBC Per 100 WBC 0 /100 WBCS (0.0-0.0); Neutrophils # (A) 6.81 X 10*3/uL (1.80-7.70); Neutrophils % (A) 73.1 %; Non-African American GFR(CKD) 76.8 (60.0-200.0); Platelet Count 170 X 10*3/uL (140-440); Potassium 3.3 mmol/L (3.5-5.5); RBC 4.61 X 10*6/uL (4.40-5.60); RDW 15.2 % (11.5-14.5); Total Bilirubin 0.7 mg/dL (0.30-1.20); Total Protein 5.9 g/dL (6.2-8.2); WBC 9.33 X 10*3/uL (4.50-10.00)
[2022-01-22 11:39] LABS: Glucose,Whole Blood 139 mg/dL (70-110)
[2022-01-22 11:45] VITALS: BP 101/53; PULSE 57; RESP 15; TEMP 97.6
[2022-01-22] MEDS ORDERED: POTASSIUM CHLORIDE ER 20 MEQ TAB.ER PO STA (12:19)
--- NOTE | 2022-01-22 12:25 | P.DS ---
Providers Date of admission: 01/20/22 16:30 Expected date of discharge: 01/22/22 Attending physician: Cleve Victoria Consults: 01/20/22 13:12 Consult Physician Routine Consulting Provider: Kelly Armstrong Consult Reason/Comments: Acute cholecystitis, medical management Do you want consulting provider notified?: Yes, Notify in am Primary care physician: Lester Meza [facility] Course: This a 52-year-old male who underwent laparoscopically cholecystectomy or gangrenous acute cholecystitis. Patient did well postoperatively. Please see hospital chart for details. Procedures: Laparoscopic cholecystectomy Patient Condition at Discharge: Good Plan - Discharge Summary Discharge Rx Participant: No New Discharge Prescriptions: No Action traMADol HCL 100 mg PO TID Insulin Glargine,Hum.rec.anlog [Toujeo Max Solostar] 114 units SQ HS Dulaglutide [Trulicity] 1.5 mg SQ MO@2100 Pioglitazone [Actos] 30 mg PO HS Levothyroxine Sodium 25 mcg PO HS Gabapentin [Neurontin] 800 mg PO TID Furosemide [Lasix] 20 mg PO HS Atorvastatin [Lipitor] 10 mg PO HS hydroCHLOROthiazide [Hydrodiuril] 25 mg PO HS cloNIDine HCL 0.1 mg PO TID Discharge Medication List Atorvastatin [Lipitor] 10 mg PO HS 01/20/22 [History] Dulaglutide [Trulicity] 1.5 mg SQ MO@2100 01/20/22 [History] Furosemide [Lasix] 20 mg PO HS 01/20/22 [History] Gabapentin [Neurontin] 800 mg PO TID 01/20/22 [History] Insulin Glargine,Hum.rec.anlog [Toujeo Max Solostar] 114 units SQ HS 01/20/22 [History] Levothyroxine Sodium 25 mcg PO HS 01/20/22 [History] Pioglitazone [Actos] 30 mg PO HS 01/20/22 [History] cloNIDine HCL 0.1 mg PO TID 01/20/22 [History] hydroCHLOROthiazide [Hydrodiuril] 25 mg PO HS 01/20/22 [History] traMADol HCL 100 mg PO TID 01/20/22 [History] Follow up Appointment(s)/Referral(s): Lester Meza, [Primary Care Provider] - 1-2 days
--- NOTE | 2022-01-22 16:02 | P.PN ---
Subjective Progress Note Date: 01/22/22 - Reason for Consult Consult date: 01/21/22 Medical management, postop cholecystectomy, history of diabetes - History of Present Illness This is a pleasant 52-year-old male who was recently admitted under surgical services and underwent laparoscopic cholecystectomy with drain placement with Dr. Victoria. Patient had acute gangrenous cholecystitis and also noted to have elevated LFTs and total bili with cholelithiasis. Patient follows with Dr. Meza in the outpatient setting with a past medical history of diabetes mellitus and is insulin-dependent. Patient reports his pain is currently manageable and reports mostly belching with no reports of gas or bowel movement as of yet. Patient is urinating and denies difficulty with urination. WBC was elevated on admission and trending down and is currently 12.8 today. Total bili is 2.4 and LFTs are noted to and AST of 113 and ALT 77 which is increased from yesterday. Recommend continuing gentle IV hydration with repeat labs in the morning. Patient with an incentive spirometer at the bedside and encourage the patient continue using at least 10 times every hour while awake. GI and DVT prophylaxis per primary. Recommend continue with Accu-Cheks before meals and at bedtime and sliding scale for now. Patient is maintained on clear liquid diet and tolerating. Advancing diet being done by general surgery. 01/22/2022 Patient is seen in follow-up this morning and reports he is passing some gas and pain is controlled. Patient's blood sugars have been well controlled and maintained on sliding scale and recommend close monitoring of Accu-Cheks before meals and at bedtime and continued monitoring at home and resuming home medications. Patient follows with Dr. Meza in the outpatient setting and recommended close outpatient follow-up on discharge. Patient also with incentive spirometer ordered and encouraged the patient to continue using at least 10 times every hour while awake even at home. Patient is afebrile and has been maintained on antibiotics. WBC is within normal limits and patient is afebrile. Recommend repeat labs in the outpatient setting once following up with primary care provider. Encouraged increased activity as tolerated and to continue with heart healthy diabetic diet. Patient will follow-up with general surgery on discharge. Repeat labs shows LFTs trending down and recommend outpatient follow-up for repeat labs. Review of systems: Constitutional: No reports of fatigue, fever, or chills Cardiovascular: No reports of chest pain or palpitations Respiratory: No reports of shortness of breath or cough GI: No reports of nausea, vomiting, or diarrhea, reports passing gas : No reports of dysuria or retention Neurovascular: No reports of weakness or numbness All medications have been reviewed PHYSICAL EXAMINATION: GENERAL: The patient is alert and oriented x4, Well developed, well nourished. Morbidly obese. HEENT: Pupils are round and equally reacting to light. EOMI. no scleral icterus. No conjunctival pallor. Normocephalic, atraumatic. No pharyngeal erythema. No thyromegaly. CARDIOVASCULAR: S1 and S2 muffled PULMONARY: diminished breath sounds bilaterally with no wheezing or rhonchi noted. ABDOMEN: soft. Mildly tender on exam. obese. non-distended, normal active bowel sounds. No palpable organomegaly. MUSCULOSKELETAL: No joint swelling or deformity. EXTREMITIES: No cyanosis, clubbing, or pedal edema. NEUROLOGICAL: Gross neurological examination did not reveal any focal deficits. SKIN: No rashes. 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 Recommend repeat labs to monitor LFTs along with CBC and BMP in the patient setting with primary care follow-up with Dr. Meza Encouraged increased activity as tolerated Patient with an incentive spirometer at the bedside and encouraged to use at least 10 times every hour while awake Patient is a known diabetic with insulin-dependent in the outpatient setting and commend continue monitoring Accu-Cheks and resuming home medications Thank you for this consultation and we will continue to follow along with general surgery during hospitalization. Recommend outpatient follow-up with primary care provider Dr. Yessica Meza Patient is being discharged today. The impression and plan of care has been dictated by Manda Dorado, nurse practitioner as directed. Dr. Gonzalo HUTTON I have performed a history and examination and MDM of this patient, discussed the same with the dictator, and agree with the dictator's assessment and plan as written ,documented as a scribe. Based on total visit time, I have performed more than 50% of the visit. Any additional findings or plans will be noted. Objective - Vital Signs Vital signs: Vital Signs Temp 97.4 F L 01/22/22 07:00 Pulse 55 L 01/22/22 07:00 Resp 16 01/22/22 07:00 BP 109/64 01/22/22 07:00 Pulse Ox 95 01/22/22 07:00 FiO2 Intake & Output 01/21/22 01/22/22 01/22/22 18:59 06:59 18:59 Output Total 40 50 Balance -40 -50 Output: Drainage 40 50 Right Lower Abdomen 40 50 Other: Voiding Method Toilet Toilet Toilet # Voids 2 1 - Labs CBC & Chem 7: 01/22/22 05:29 01/22/22 05:29 Labs: Abnormal Lab Results - Last 24 Hours (Table) 01/20/22 01/21/22 01/21/22 Range/Units 11:10 11:44 16:44 POC Glucose (mg/dL) 176 H 153 H (70-110) mg/dL Hemoglobin A1c 6.5 H (0.0-6.0) % 01/21/22 01/22/22 Range/Units 21:20 06:51 POC Glucose (mg/dL) 159 H 118 H (70-110) mg/dL Hemoglobin A1c (0.0-6.0) % Microbiology - Last 24 Hours (Table) 01/20/22 18:40 Blood Culture - Preliminary Blood No Growth after 24 hours 01/20/22 18:27 Blood Culture - Preliminary Blood No Growth after 24 hours 01/20/22 14:06 Blood Culture - Preliminary Blood No Growth after 24 hours 01/20/22 13:46 Blood Culture - Preliminary Blood No Growth after 24 hours
== END 2022-01-22 13:35 | disposition home or self-care (01) | DRG 418 ==
LOC: EC 10:39 → 4SSUR 13:12 → OBSVTOIN 16:30 → 6NMEDSUR 16:53
PROVIDERS: ADMIT Surgery; ATTEND Surgery
PROC: 0FT44ZZ Resection of Gallbladder, Percutaneous Endoscopic Approach (ICD-10-PCS; principal; 2022-01-20 11:55)
DX: K80.12 Calculus of gallbladder with acute and chronic cholecystitis without obstruction (principal); Z68.42 Body mass index [BMI] 45.0-49.9, adult; E11.42 Type 2 diabetes mellitus with diabetic polyneuropathy; E66.01 Morbid (severe) obesity due to excess calories; I10 Essential (primary) hypertension; K82.A1 Gangrene of gallbladder in cholecystitis; E78.5 Hyperlipidemia, unspecified; D72.829 Elevated white blood cell count, unspecified; E87.6 Hypokalemia; R79.89 Other specified abnormal findings of blood chemistry; Z79.899 Other long term (current) drug therapy; Z79.891 Long term (current) use of opiate analgesic; Z79.84 Long term (current) use of oral hypoglycemic drugs; Z79.4 Long term (current) use of insulin; Z79.890 Hormone replacement therapy; Z91.018 Allergy to other foods; Z88.8 Allergy status to other drugs, medicaments and biological substances; Z90.09 Acquired absence of other part of head and neck
CPT/HCPCS: 36415; 74177; 80053; 81001; 82150; 83036; 83605; 83690; 85025; 87040; 88304; 96361; 96365; 96375; 99285

== ENCOUNTER → 2022-06-09 | Outpatient (CLI) | payer MEDICARE ==
[2022-06-09 14:24] VITALS: BP 143/74; PULSE 84; TEMP 97.9; BMI 45.8
[2022-06-09 16:06] LABS: HCT 48.7 % (39.0-53.0); HGB 15.7 gm/dL (13.0-17.5); MCH 27.7 pg (25.0-35.0); MCHC 32.3 g/dL (31.0-37.0); MCV 85.7 fL (80.0-100.0); Mean Platelet Volume 7.2; Platelet Count 271 k/uL (150-450); RBC 5.68 m/uL (4.30-5.90); RDW 14.7 % (11.5-15.5); WBC 8.9 k/uL (3.8-10.6)
[2022-06-10 00:33] LABS: African American GFR (CKD) 85.2 (60.0-200.0); Albumin 4.2 g/dL (3.8-4.9); Albumin/Globulin Ratio 1.33 (1.60-3.17); Anion Gap 15.4 mmol/L (10.00-18.00); BUN/Creat Ratio 15.26 Ratio (12.00-20.00); Blood Urea Nitrogen 17.4 mg/dL (9.0-27.0); Calcium 9.6 mg/dL (8.7-10.3); Carbon Dioxide 28.1 mmol/L (20.0-27.5); Globulin 3.2 g/dL (1.6-3.3); Non-African American GFR(CKD) 73.5 (60.0-200.0); Potassium 4.2 mmol/L (3.5-5.5); Total Bilirubin 0.6 mg/dL (0.30-1.20); Total Protein 7.4 g/dL (6.2-8.2)
== END ==
LOC: BARWHC3 13:46
PROVIDERS: ATTEND Surgery
DX: E66.01 Morbid (severe) obesity due to excess calories (principal); E55.9 Vitamin D deficiency, unspecified; Z68.42 Body mass index [BMI] 45.0-49.9, adult; Z88.8 Allergy status to other drugs, medicaments and biological substances; Z91.018 Allergy to other foods
CPT/HCPCS: 84425; 80053; 82607; 82746; 85027; 82306; 83036; 93005; G0463; 99213

== ENCOUNTER → 2022-08-11 | Outpatient (CLI) | payer MEDICARE ==
[2022-08-11 14:16] VITALS: BP 142/75; PULSE 79; TEMP 97.9; BMI 46.3
--- NOTE | 2022-08-12 09:56 | P.HPBAR ---
Bariatric H&P - History & Physicial H&P Date: 08/11/22 History & Physicial: Visit/CC: EGD F/U Patient initial contact: Initial weight: Initial weight in pounds: Height: 5 ft 6 in Initial BMI: Last weight: Current weight: 130.181 kg Current weight in pounds: 287.00 Current BMI: 46.3 [place] body weight (based on NIH guidelines): 64.41 kg Excess body weight loss: The patient is a 52 year-old M who presents for Bariatric Assessment. Patient presents today for bariatric follow-up. Patient's morbid obese. BMI is 46. Patient underwent recent EGD. He is scheduled for diet classes. Past Medical History Past Medical History: Diabetes Mellitus, Hypertension, Thyroid Disorder Additional Past Medical History / Comment(s): neuropathy of bilat legs History of Any Multi-Drug Resistant Organisms: None Reported Past Surgical History: Cholecystectomy Additional Past Surgical History / Comment(s): partial thyroidectomy. Past Anesthesia/Blood Transfusion Reactions: No Reported Reaction Additional Past Anesthesia/Blood Transfusion Reaction / Comm: no hx blood transfusion Past Psychological History: No Psychological Hx Reported Smoking Status: Never smoker Past Alcohol Use History: Rare Past Drug Use History: None Reported - Past Family History Mother Family Medical History: No Reported History Surgical - Exam Vital Signs Temp Pulse BP 97.9 F 79 142/75 08/11/22 14:13 08/11/22 14:13 08/11/22 14:13 - General well developed, well nourished, no distress - Eyes PERRL - ENT normal pinna, normal nares - Neck no masses - Respiratory normal expansion - Cardiovascular Rhythm: regular - Abdomen Abdomen: soft, non tender Bariatric Assessment & Plan Plan: Morbid obesity. Patient will be scheduled for sleeve gastrectomy once her insurance authorization requirements have been met. Bariatric Checklist Checklist: Plan: Checklist: EGD: 1. Hiatal hernia: 2. H. Pylori: HgbA1c: Vitamin D: Smoking: Primary care physician referral: Dr. Meza Psychiatry clearance: Cardiology clearance: Sleep study: Diet journal: VTE risk score: VTE risk level: Rehab needs at discharge:
== END ==
LOC: BARWHC3 13:48
PROVIDERS: ATTEND Surgery
DX: E66.01 Morbid (severe) obesity due to excess calories (principal); E11.9 Type 2 diabetes mellitus without complications; I10 Essential (primary) hypertension; E07.9 Disorder of thyroid, unspecified; Z91.018 Allergy to other foods; Z88.8 Allergy status to other drugs, medicaments and biological substances; Z68.42 Body mass index [BMI] 45.0-49.9, adult
CPT/HCPCS: 99211

== ENCOUNTER → 2022-08-18 | Outpatient (CLI) | payer MEDICARE ==
[2022-08-18 10:53] VITALS: BMI 53.2
== END ==
LOC: BARWHC3 08:45
PROVIDERS: ATTEND Surgery
DX: E66.01 Morbid (severe) obesity due to excess calories (principal); Z71.3 Dietary counseling and surveillance; Z91.018 Allergy to other foods; Z88.8 Allergy status to other drugs, medicaments and biological substances; Z68.43 Body mass index [BMI] 50.0-59.9, adult
CPT/HCPCS: 97804

== ENCOUNTER → 2022-10-31 | Outpatient (CLI) | payer MEDICARE ==
[2022-10-31 11:04] LABS: ALT 20 U/L (10-49); AST 20 U/L (14-35); Albumin 4.3 d/dL (3.8-4.9); Albumin/Globulin Ratio 1.26 Ratio (1.60-3.17); Alkaline Phosphatase 99 U/L (41-126); Blood Urea Nitrogen 15.9 mg/dL (9.0-27.0); Calcium 9.8 mg/dL (8.7-10.3); Carbon Dioxide 31.6 mmol/L (21.6-31.8); Chloride 100 mmol/L (96-109); Globulin 3.4 d/dL (1.6-3.3); Glucose 85 mg/dL (70-110); Potassium 3.7 mmol/L (3.5-5.5); Sodium 144 mmol/L (135-145); Total Bilirubin 0.6 mg/dL (0.3-1.2); Total Protein 7.7 d/dL (6.2-8.2)
[2022-10-31 14:30] LABS: Basophils # (A) 0.09 X 10*3/uL (0.00-0.10); Basophils % (A) 1.2 %; Eosinophils # (A) 0.24 X 10*3/uL (0.04-0.35); Eosinophils % (A) 3.1 %; HCT 55.2 % (39.6-50.0); HGB 17.5 d/dL (12.0-15.0); Lymphocytes # (A) 1.65 X 10*3/uL (0.90-5.00); Lymphocytes % (A) 21.1 %; MCH 27.2 pg (27.0-32.0); MCHC 31.7 d/dL (32.0-37.0); MCV 85.8 FL (80.0-97.0); Monocytes # (A) 0.52 X 10*3/uL (0.20-1.00); Monocytes % (A) 6.7 %; NRBC Per 100 WBC 0 X 10*3/uL (0.00-0.01); Neutrophils # (A) 5.25 X 10*3/uL (1.80-7.70); Neutrophils % (A) 67.1 %; Platelet Count 212 X 10*3/uL (140-440); RBC 6.43 X 10*6/uL (4.40-5.60); RDW 17.2 % (11.5-14.5); WBC 7.81 X 10*3/uL (4.50-10.00)
== END | disposition home or self-care (01) ==
LOC: LABPAT 07:09
PROVIDERS: ATTEND Surgery
DX: Z01.818 Encounter for other preprocedural examination (principal)
CPT/HCPCS: 36415; 80053; 85025

== ENCOUNTER 2022-11-03 07:30 | Inpatient (IN) | payer MEDICARE ==
[~2022-11-03 07:30] MED LIST: DEXAMETHASONE SOD PHOSPHATE 4 MG/ML 1 ML VIAL IV ONE; ENOXAPARIN 40 MG/0.4 ML SYRINGE SQ PRN; ONDANSETRON 4 MG/2 ML VIAL IVP ONE; ceFAZolin 3 GM in SODIUM CHLORIDE 0.9% 100 ML IVPB PRN
[2022-11-03] MEDS ORDERED: LACTATED RINGERS 1,000 ML IV ONE ×2 (08:27→11:38)
[2022-11-03 08:48] LABS: Glucose,Whole Blood 69 mg/dL (70-110)
[2022-11-03] MEDS ORDERED: DEXTROSE 50% SYRINGE 50 ML IVP ONE (08:55)
--- NOTE | 2022-11-03 08:58 | P.GSHP ---
History of Present Illness H&P Date: 11/03/22 Chief Complaint: Morbid obesity, BMI 45 This is a 50-year-old male presents today for sleeve gastrectomy. Patient has had lifetime problems obesity. His BMI is 46. Patient is aware of risks of surgery including conversion to the open procedure injury to the stomach liver or spleen. He is also aware the risk of gastric staple line disruption, bleeding scarring Past Medical History Past Medical History: Diabetes Mellitus, Eye Disorder, Hypertension, Thyroid Disorder Additional Past Medical History / Comment(s): IDDM type II, neuropathy of bilat hands/legs, bilateral retinal bleeds with surgery, occasional pedal edema, esophagitis/gastritis, pulmonary htn, lumbar spondylosis/occasional back pain, past thyroid benign nodules. History of Any Multi-Drug Resistant Organisms: None Reported Past Surgical History: Cholecystectomy Additional Past Surgical History / Comment(s): EGD, partial thyroidectomy, bilateral eye surgeries for retinal bleeds. Past Anesthesia/Blood Transfusion Reactions: No Reported Reaction Additional Past Anesthesia/Blood Transfusion Reaction / Comment(s): no hx blood transfusion Smoking Status: Never smoker - Past Family History Mother Family Medical History: No Reported History Additional Family Medical History / Comment(s): neuropathy Father Family Medical History: No Reported History Medications and Allergies Home Medications Medication Instructions Recorded Confirmed Type Atorvastatin [Lipitor] 10 mg PO 219901/20/22 10/30/22 History Dulaglutide [Trulicity] 1.5 mg SQ MO@2100 01/20/22 10/30/22 History Furosemide [Lasix] 20 mg PO 0 01/20/22 10/30/22 History Gabapentin [Neurontin] 800 mg PO TID 01/20/22 10/30/22 History Insulin Glargine,Hum.rec.anlog 114 units SQ 219901/20/22 10/30/22 History [Toujeo Max Solostar] Levothyroxine Sodium 25 mcg PO 219901/20/22 10/30/22 History Pioglitazone [Actos] 30 mg PO 219901/20/22 10/30/22 History cloNIDine HCL 0.1 mg PO TID 01/20/22 10/30/22 History hydroCHLOROthiazide [Hydrodiuril] 25 mg PO 2200 01/20/22 10/30/22 History traMADol HCL 100 mg PO TID 01/20/22 10/30/22 History Dapagliflozin Propanediol [Farxiga] 5 mg PO 2200 06/09/22 10/30/22 History Calcium Citrate/Vitamin D3 1 tab PO QAM 10/30/22 10/30/22 History [Calcium Cit-Vit D3 500 mg Chew] Multivitamin [Multivitamins Adult 1 tab PO QAM 10/30/22 10/30/22 History Gummies] Allergies Allergy/AdvReac Type Severity Reaction Status Date / Time melon Allergy Anaphylaxis Verified 11/03/22 08:26 NAKUL Inhibitors AdvReac Cough Verified 11/03/22 08:26 Surgical - Exam Vital Signs Temp Pulse Resp BP Pulse Ox 98.0 F 89 16 159/76 97 11/03/22 08:37 11/03/22 08:37 11/03/22 08:37 11/03/22 08:37 11/03/22 08:37 - General well developed, well nourished - Eyes PERRL - ENT normal pinna - Neck no masses - Respiratory normal expansion - Cardiovascular Rhythm: regular - Abdomen Abdomen: soft, non tender Results - Labs Abnormal Lab Results - Last 24 Hours (Table) 11/03/22 Range/Units 08:40 POC Glucose (mg/dL) 69 L (70-110) mg/dL Assessment and Plan Assessment: Morbid obesity. Patient will undergo laparoscopic sleeve gastrectomy.
[2022-11-03 09:18] LABS: Glucose,Whole Blood 100 mg/dL (70-110)
[2022-11-03] MEDS ORDERED: BUPIVACAINE (PF) 0.25% 30 ML VIAL SQ ONE (10:09)
[2022-11-03] MEDS ORDERED: SUCCINYLCHOLINE CHLORIDE 200 MG/10 ML VIAL IV ONE (10:17)
[2022-11-03] MEDS ORDERED: ROCURONIUM 10 MG/ML (5 ML VIAL) IV ONE (10:17)
[2022-11-03] MEDS ORDERED: LIDOCAINE 2% INJ 20 MG/ML (2 ML VIAL) ONE (10:17)
[2022-11-03] MEDS ORDERED: MIDAZOLAM 2 MG/2 ML VIAL ONE (10:17)
[2022-11-03] MEDS ORDERED: NEOSTIGMINE 1 MG/ML 10 ML VIAL ONE (10:17)
[2022-11-03] MEDS ORDERED: GLYCOPYRROLATE 0.2 MG/ML 2 ML VIAL ONE (10:17)
[2022-11-03] MEDS ORDERED: KETOROLAC 15 MG/ML 1 ML VIAL ONE (10:17)
[2022-11-03] MEDS ORDERED: PROPOFOL 10 MG/ML 20 ML VIAL IV ONE (10:17)
[2022-11-03] MEDS ORDERED: fentaNYL (PF) 50 MCG/ML 2 ML AMP ONE (10:17)
[2022-11-03 11:51] LABS: Glucose,Whole Blood 101 mg/dL (70-110)
[2022-11-03] MEDS: HYDROmorphone 0.5 MG/0.5 ML SYRINGE IVP PRN ×2 (12:05→13:01)
[2022-11-03] MEDS ORDERED: ONDANSETRON 4 MG/2 ML VIAL IVP PRN (12:16)
[2022-11-03] MEDS ORDERED: NALOXONE 0.4 MG/ML 1 ML VIAL IV PRN (12:16)
[2022-11-03] MEDS ORDERED: HYDROcodone/APAP 15 ML SOLUTION PO PRN (12:16)
[2022-11-03] MEDS ORDERED: HYDROmorphone 1 MG/ML 1 ML SYRINGE IVP PRN (12:16)
--- NOTE | 2022-11-03 12:16 | P.OP ---
Date of Procedure: 11/03/22 Preoperative Diagnosis: Morbid obesity, BMI 46 Postoperative Diagnosis: Morbid obesity, BMI 46 Procedure(s) Performed: Laparoscopic sleeve gastrectomy Anesthesia: JOELLE Surgeon: Cleve Victoria Estimated Blood Loss (ml): 25 Pathology: other (Stomach) Condition: stable Disposition: PACU Description of Procedure: The patient was placed on the operating room table in the supine position. She received general anesthesia and then was placed in dorsal lithotomy position. Her abdomen was prepped and draped in sterile fashion. The skin incision sites were anesthetized 1% local Xylocaine. And then the skin was incised with an 11 blade in the left lateral position. Using a blade less trocar under direct visualization the peritoneal cavity was entered. The abdomen was insufflated and then a 5 mm laparoscope was placed into the peritoneal cavity. A 5 mm trocar was placed in the right epigastric, and right lateral position. A 15 mm trocar was placed in the supra-umbilical position and another 5 mm trocar was placed in the left lateral position. The left lateral lobe of the liver was retracted. The stomach was visualized. The greater curvature of the stomach was then dissected using the Harmonic scissors. The dissection occurred approximately 5 cm from the pylorus to the level of the left yan. There was no hiatal hernia seen. At this point a 40-Frisian bougie dilator was placed the oropharynx and passed into the esophagus and into the stomach by the CORRUGATOR SUPERVISOR. The sleeve gastrectomy was performed by using the powered echelon stapler with a seam guard buttress material. Sequential firings of the stapler were performed. The gastric remnant was then brought out through the 15 mm trocar site. The dilator was withdrawn. And a orogastric tube was replaced into the stomach. The stomach was insufflated with 200 mL of methylene blue normal saline. There was no evidence of extravasation. The abdomen was irrigated there is no bleeding seen. The Thien-Radha device was used to close the 15 mm trocar with 0 Vicryl. Skin was closed with interrupted 3-0 Monocryl sutures once the trochars withdrawn. Dermabond dressing was applied. Patient was sent to recovery in stable condition.
[2022-11-03] MEDS: LACTATED RINGERS 1,000 ML IV SCH (13:46)
[2022-11-03] MEDS: 0.9% NACL WITH KCL 20 MEQ/L 1,000 ML IV SCH ×2 (15:25→22:09)
[2022-11-03] MEDS: ALBUTEROL NEBULIZED 2.5 MG/3 ML INHALATION SCH ×2 (16:33→21:06)
[2022-11-03 16:52] LABS: Glucose,Whole Blood 96 mg/dL (70-110)
[2022-11-03] MEDS: KETOROLAC 15 MG/ML 1 ML VIAL IVP SCH ×2 (18:00→23:57)
[2022-11-03 20:19] LABS: Glucose,Whole Blood 112 mg/dL (70-110)
[2022-11-03] MEDS: GABAPENTIN 400 MG CAP PO SCH (22:08)
[2022-11-04] MEDS: 0.9% NACL WITH KCL 20 MEQ/L 1,000 ML IV SCH (04:32)
[2022-11-04] MEDS: LACTATED RINGERS 1,000 ML IV SCH (04:34)
[2022-11-04 05:32] LABS: Glucose,Whole Blood 89 mg/dL (70-110)
[2022-11-04] MEDS: KETOROLAC 15 MG/ML 1 ML VIAL IVP SCH ×2 (05:35→10:57)
[2022-11-04] MEDS ORDERED: ENOXAPARIN 40 MG/0.4 ML SYRINGE SQ SCH (06:00)
[2022-11-04 06:22] LABS: Basophils % (A) 0 %; Eosinophils % (A) 0 %; HCT 48.9 % (39.0-53.0); HGB 15.5 gm/dL (13.0-17.5); Lymphocytes # (A) 1.2 k/uL (1.0-4.8); Lymphocytes % (A) 13 %; MCHC 31.6 g/dL (31.0-37.0); MCV 85.4 fL (80.0-100.0); Mean Platelet Volume 7.4; Monocytes # (A) 0.6 k/uL (0-1.0); Monocytes % (A) 7 %; Neutrophils # (A) 7.1 k/uL (1.3-7.7); Neutrophils % (A) 78 %; Platelet Count 316 k/uL (150-450); RBC 5.73 m/uL (4.30-5.90); RDW 15.9 % (11.5-15.5); WBC 9.1 k/uL (3.8-10.6)
[2022-11-04 06:30] LABS: African American GFR (CKD) >90 (>60 ml/min/1.73 sqM); Anion Gap 12 mmol/L; Blood Urea Nitrogen 19 mg/dL (9-20); Calcium 8.2 mg/dL (8.4-10.2); Carbon Dioxide 27 mmol/L (22-30); Chloride 100 mmol/L (98-107); Non-African American GFR(CKD) >90 (>60 ml/min/1.73 sqM); Phosphorus 2.9 mg/dL (2.5-4.5); Potassium 4.2 mmol/L (3.5-5.1); Sodium 139 mmol/L (137-145)
[2022-11-04] MEDS: GABAPENTIN 400 MG CAP PO SCH (07:58)
[2022-11-04] MEDS ORDERED: 1: MVI, ADULT NO.4 WITH VIT K 10 ML, THIAMINE 100 MG, FOLIC ACID 1 MG, POTASSIUM CHLORID IV SCH ×6 (08:00)
[2022-11-04 08:22] VITALS: BP 142/61; RESP 18; TEMP 98.5
[2022-11-04] MEDS: ALBUTEROL NEBULIZED 2.5 MG/3 ML INHALATION SCH ×2 (08:37→11:39)
--- NOTE | 2022-11-04 10:09 | P.CONS ---
History of Present Illness - Reason for Consult Management of diabetes mellitus - History of Present Illness Patient is status post a sleeve gastrectomy pain is well-controlled patient doesn't have any nausea at this time patient is otherwise clinically doing well and patient is receiving IV fluids at this time. Denied any complaints at this time able to tolerate liquid diet well. Is passing gas. REVIEW OF SYSTEMS: CONSTITUTIONAL: No fever, no malaise, no fatigue. HEENT: No recent visual problems or hearing problems. Denied any sore throat. CARDIOVASCULAR: No chest pain, orthopnea, PND, no palpitations, no syncope. PULMONARY: No shortness of breath, no cough, no hemoptysis. GASTROINTESTINAL: No diarrhea, no nausea, no vomiting, no abdominal pain. NEUROLOGICAL: No headaches, no weakness, no numbness. HEMATOLOGICAL: Denies any bleeding or petechiae. GENITOURINARY: Denies any burning micturition, frequency, or urgency. MUSCULOSKELETAL/RHEUMATOLOGICAL: Denies any joint pain, swelling, or any muscle pain. ENDOCRINE: Denies any polyuria or polydipsia. The rest of the 14-point review of systems is negative. PHYSICAL EXAMINATION: GENERAL: The patient is alert and oriented x3, not in any acute distress. Obese HEENT: Pupils are round and equally reacting to light. EOMI. No scleral icterus. No conjunctival pallor. Normocephalic, atraumatic. No pharyngeal erythema. No thyromegaly. CARDIOVASCULAR: S1 and S2 present. No murmurs, rubs, or gallops. PULMONARY: Chest is clear to auscultation, no wheezing or crackles. ABDOMEN: Abdominal binder in place nondistended, normoactive bowel sounds. No palpable organomegaly. MUSCULOSKELETAL: No joint swelling or deformity. EXTREMITIES: No cyanosis, clubbing, or pedal edema. NEUROLOGICAL: Gross neurological examination did not reveal any focal deficits. SKIN: No rashes. Assessment and plan -Type 2 diabetes mellitus: Patient blood sugars were low yesterday since patient is not going to be on full diet all his diabetic medications will be held and we will cut down the dose of long-acting insulin to 90 units from 110 units and will continue with sliding scale insulin high-dose. Titration of pressors medications depending on the blood sugars here in the hospital -Hypothyroidism -hypertension: Does have some postoperative hypotension clonidine will be held -Severe diabetic peripheral neuropathy for which patient is an elevated which will be continued -Hypothyroidism resumed on levothyroxin -Status post a gastrectomy: Management as per primary service DVT prophylaxis: Lovenox 40 mg twice a day which is appropriate because of his BMI GI prophylaxis with Protonix Past Medical History Past Medical History: Diabetes Mellitus, Eye Disorder, Hypertension, Thyroid Disorder Additional Past Medical History / Comment(s): IDDM type II, neuropathy of bilat hands/legs, bilateral retinal bleeds with surgery, occasional pedal edema, esophagitis/gastritis, pulmonary htn, lumbar spondylosis/occasional back pain, past thyroid benign nodules. History of Any Multi-Drug Resistant Organisms: None Reported Past Surgical History: Bariatric Surgery, Cholecystectomy Additional Past Surgical History / Comment(s): EGD, partial thyroidectomy, bilateral eye surgeries for retinal bleeds. Sleeve 11/03/22. Past Anesthesia/Blood Transfusion Reactions: No Reported Reaction Additional Past Anesthesia/Blood Transfusion Reaction / Comm: no hx blood transfusion Past Psychological History: No Psychological Hx Reported Additional Psychological History / Comment(s): Pt resides family. Cane for longer distances. Smoking Status: Never smoker Past Alcohol Use History: Rare Past Drug Use History: None Reported - Past Family History Mother Family Medical History: No Reported History Additional Family Medical History / Comment(s): neuropathy Father Family Medical History: No Reported History Medications and Allergies Home Medications Medication Instructions Recorded Confirmed Type Atorvastatin [Lipitor] 10 mg PO 219901/20/22 10/30/22 History Dulaglutide [Trulicity] 1.5 mg SQ MO@2100 01/20/22 10/30/22 History Furosemide [Lasix] 20 mg PO 219901/20/22 10/30/22 History Gabapentin [Neurontin] 800 mg PO TID 01/20/22 10/30/22 History Insulin Glargine,Hum.rec.anlog 114 units SQ 219901/20/22 10/30/22 History [Toujeo Max Solostar] Levothyroxine Sodium 25 mcg PO 219901/20/22 10/30/22 History Pioglitazone [Actos] 30 mg PO 219901/20/22 10/30/22 History cloNIDine HCL 0.1 mg PO TID 01/20/22 10/30/22 History hydroCHLOROthiazide [Hydrodiuril] 25 mg PO 219901/20/22 10/30/22 History traMADol HCL 100 mg PO TID 01/20/22 10/30/22 History Dapagliflozin Propanediol [Farxiga] 5 mg PO 2200 06/09/22 10/30/22 History Calcium Citrate/Vitamin D3 1 tab PO QAM 10/30/22 10/30/22 History [Calcium Cit-Vit D3 500 mg Chew] Multivitamin [Multivitamins Adult 1 tab PO QAM 10/30/22 10/30/22 History Gummies] Allergies Allergy/AdvReac Type Severity Reaction Status Date / Time melon Allergy Anaphylaxis Verified 11/03/22 08:26 NAKUL Inhibitors AdvReac Cough Verified 11/03/22 08:26 Physical Exam Vitals: Vital Signs Temp Pulse Pulse Resp BP Pulse Ox FiO2 11/04/22 08:46 88 11/04/22 08:37 88 97 11/04/22 07:50 98.5 F 73 18 142/61 98 11/04/22 01:20 97.7 F 98 16 109/65 95 11/03/22 21:15 99 21 11/03/22 21:07 73 11/03/22 19:02 97.8 F 92 16 111/65 94 L 11/03/22 16:48 82 11/03/22 16:33 84 94 L 11/03/22 14:00 97.5 F L 83 19 165/78 95 11/03/22 13:45 82 16 161/64 98 11/03/22 13:30 83 16 146/74 96 11/03/22 13:00 78 16 139/62 97 11/03/22 12:45 78 16 155/63 95 11/03/22 12:30 73 17 163/82 96 11/03/22 12:17 70 15 156/76 95 11/03/22 12:00 74 17 135/76 93 L 11/03/22 11:46 97.2 F L 77 20 105/76 97 Intake and Output 11/03/22 11/04/22 11/04/22 22:59 06:59 14:59 Intake Total 1850 236 Output Total 200 500 Balance -200 1350 236 Intake: Intake, IV Titration 1850 Amount 0.9% NaCl with KCl 20 Meq 1800 /l 1,000 ml @ 150 mls/hr IV .[id number] [facility] Rx#: [id number] ceFAZolin 2 gm In Sodium 50 Chloride 0.9% 50 ml @ 100 mls/hr IVPB Q8H [facility] Rx#: [id number] Oral 236 Output: Urine 200 500 Results CBC & Chem 7: 11/04/22 05:38 11/04/22 05:38 Labs: Abnormal Lab Results - Last 24 Hours (Table) 11/03/22 11/04/22 11/04/22 Range/Units 20:17 05:38 05:38 RDW 15.9 H (11.5-15.5) % POC Glucose (mg/dL) 112 H (70-110) mg/dL Calcium 8.2 L (8.4-10.2) mg/dL
[2022-11-04] MEDS ORDERED: PANTOPRAZOLE 40 MG/10 ML VIAL IVP SCH (10:15)
[2022-11-04 11:07] LABS: Glucose,Whole Blood 85 mg/dL (70-110)
[2022-11-04 11:48] VITALS: PULSE 85
[2022-11-04 12:12] VITALS: BMI 45.4
[2022-11-04] MEDS ORDERED: LEVOTHYROXINE 25 MCG TAB PO SCH (22:00)
[2022-11-04] MEDS ORDERED: INSULIN DETEMIR (LEVEMIR) 100 UNIT/ML SYR SQ SCH (22:00)
[2022-11-04] MEDS ORDERED: ATORVASTATIN 10 MG TAB PO SCH (22:00)
--- NOTE | 2022-11-07 11:37 | CDI ---
Documentation Clarification Form Date: 11/07/2022 11:31:11 AM From: Lin Dorsey RN, CCDS Email: [email or web address] Admit Date: 11/03/2022 07:59:00 AM Patient Name: Juan C Stacy Visit Number: [id number] Discharge Date: 11/04/2022 03:00:00 PM ATTENTION: The Clinical Documentation Specialists (CDI) and [facility] Coding Staff appreciate your assistance in clarifying documentation. Please respond to the clarification below the line at the bottom and electronically sign. The CDI & [facility] Coding staff will review the response and follow-up if needed. Please note: Queries are made part of the Legal Health Record. If you have any questions, please contact the author of this message via ITS. Dr. Dannielle Sánchez Postoperative hypotension is documented in your 11/04 consult note and patient had a sleeve gastrectomy. Additional clarification is requested regarding the relationship, if any, that exists between the diagnosis and the procedure. Patients Admitting Diagnosis: Morbid obesity Post-Operative Diagnosis: same Procedure performed: laparoscopic sleeve gastrectomy History/Risk Factors: Morbid obesity, DM, HTN Clinical Indicators: 11/03 BP: 159/76-105/76-135/76-163/82 11/04 BP: 109/65-142/61 Treatment: Hold Clonidine What relationship, if any, exists between the diagnosis of postoperative hypotension and the procedure: [ ] postoperative hypotension is a complication of surgical procedure [x ] postoperative hypotension is an expected outcome of the surgical procedure due to anesthesia [ ] postoperative hypotension is related to patients co-morbid conditions & not a complication of the procedure [ ] postoperative hypotension has been ruled out [ ] Other please specify ____ [ ] Unable to determine MTDD
== END 2022-11-04 15:00 | disposition home or self-care (01) | DRG 621 ==
LOC: 2ORMAIN 07:59 → 4SSUR 13:37
PROVIDERS: ADMIT Surgery; ATTEND Surgery
PROC: 0DB64Z3 Excision of Stomach, Percutaneous Endoscopic Approach, Vertical (ICD-10-PCS; principal; 2022-11-03 09:50)
DX: E66.01 Morbid (severe) obesity due to excess calories (principal); I27.20 Pulmonary hypertension, unspecified; E11.42 Type 2 diabetes mellitus with diabetic polyneuropathy; I95.9 Hypotension, unspecified; Z68.42 Body mass index [BMI] 45.0-49.9, adult; Z79.4 Long term (current) use of insulin; I10 Essential (primary) hypertension; K29.70 Gastritis, unspecified, without bleeding; E03.9 Hypothyroidism, unspecified; M47.816 Spondylosis without myelopathy or radiculopathy, lumbar region; Z79.84 Long term (current) use of oral hypoglycemic drugs; Z79.85 Long-term (current) use of injectable non-insulin antidiabetic drugs; Z79.891 Long term (current) use of opiate analgesic; Z79.890 Hormone replacement therapy; Z79.899 Other long term (current) drug therapy
CPT/HCPCS: 80051; 82310; 82565; 83735; 84100; 84520; 85025; 88307; 88342; 94640; 94760; 94762

== ENCOUNTER → 2022-11-07 | Outpatient (CLI) | payer MEDICARE ==
[2022-11-07 11:03] VITALS: BP 127/73; PULSE 75; RESP 13; TEMP 97.8
== END ==
LOC: BARWHC3 09:59
PROVIDERS: ATTEND Surgery
DX: E66.01 Morbid (severe) obesity due to excess calories (principal); Z51.89 Encounter for other specified aftercare; Z98.84 Bariatric surgery status
CPT/HCPCS: 99211

== ENCOUNTER → 2022-11-10 | Outpatient (CLI) | payer MEDICARE ==
[2022-11-10 14:18] VITALS: BP 167/77; PULSE 84; TEMP 97.4; BMI 44.0
--- NOTE | 2023-01-02 10:52 | P.HPBAR ---
Bariatric H&P - History & Physicial H&P Date: 11/10/22 History & Physicial: Visit/CC: sleeve 1 week F/U Patient initial contact: Initial weight: Initial weight in pounds: Height: 5 ft 6 in Initial BMI: Last weight: Current weight: 123.831 kg Current weight in pounds: 273.00 Current BMI: 44.0 [place] body weight (based on NIH guidelines): 64.41 kg Excess body weight loss: The patient is a 52 year-old M who presents for Bariatric Assessment.Patient presents today for bariatric follow-up. He is approxi-1 week postop from gastric sleeve surgery. Patient feels well. He denies any significant issues. He has had no dysphagia nausea or vomiting. He has minimal abdominal pain. Past Medical History Past Medical History: Diabetes Mellitus, Eye Disorder, Hypertension, Thyroid Disorder Additional Past Medical History / Comment(s): IDDM type II, neuropathy of bilat hands/legs, bilateral retinal bleeds with surgery, occasional pedal edema, esophagitis/gastritis, pulmonary htn, lumbar spondylosis/occasional back pain, past thyroid benign nodules. History of Any Multi-Drug Resistant Organisms: None Reported Past Surgical History: Bariatric Surgery, Cholecystectomy Additional Past Surgical History / Comment(s): EGD, partial thyroidectomy, bilateral eye surgeries for retinal bleeds. Sleeve 11/03/22. Past Anesthesia/Blood Transfusion Reactions: No Reported Reaction Additional Past Anesthesia/Blood Transfusion Reaction / Comm: no hx blood transfusion Past Psychological History: No Psychological Hx Reported Additional Psychological History / Comment(s): Pt resides family. Cane for longer distances. Smoking Status: Never smoker Past Alcohol Use History: Rare Past Drug Use History: None Reported - Past Family History Mother Family Medical History: No Reported History Additional Family Medical History / Comment(s): neuropathy Father Family Medical History: No Reported History Surgical - Exam Vital Signs Temp Pulse BP 97.4 F L 84 167/77 11/10/22 13:56 11/10/22 13:56 11/10/22 13:56 - General well developed, well nourished, no distress - Abdomen Abdomen: soft, non tender Bariatric Assessment & Plan Plan: Status post sleeve gastrectomy. Patient is doing well. He will follow-up in 2 weeks. Bariatric Checklist Checklist: Plan: Checklist: EGD: 1. Hiatal hernia: 2. H. Pylori: HgbA1c: Vitamin D: Smoking: Primary care physician referral: Dr. Meza Psychiatry clearance: Cardiology clearance: Sleep study: Diet journal: VTE risk score: VTE risk level: Rehab needs at discharge:
== END ==
LOC: BARWHC3 13:47
PROVIDERS: ATTEND Surgery
DX: E66.9 Obesity, unspecified (principal); I10 Essential (primary) hypertension; M47.10 Other spondylosis with myelopathy, site unspecified; E11.40 Type 2 diabetes mellitus with diabetic neuropathy, unspecified; K29.50 Unspecified chronic gastritis without bleeding; K20.90 Esophagitis, unspecified without bleeding; E78.00 Pure hypercholesterolemia, unspecified; E07.9 Disorder of thyroid, unspecified; Z79.890 Hormone replacement therapy; Z91.018 Allergy to other foods; Z88.8 Allergy status to other drugs, medicaments and biological substances; Z48.815 Encounter for surgical aftercare following surgery on the digestive system; Z68.42 Body mass index [BMI] 45.0-49.9, adult; Z79.4 Long term (current) use of insulin; Z98.84 Bariatric surgery status
CPT/HCPCS: 97802; G0463; 99211

== ENCOUNTER → 2022-12-01 | Outpatient (CLI) | payer MEDICARE ==
[2022-12-01 13:38] VITALS: BP 129/78; PULSE 102; TEMP 97.6; BMI 42.3
--- NOTE | 2022-12-19 09:42 | P.HPBAR ---
Bariatric H&P - History & Physicial H&P Date: 12/01/22 History & Physicial: Visit/CC: 1 month sleeve F/U Patient initial contact: Initial weight: Initial weight in pounds: Height: 5 ft 6 in Initial BMI: Last weight: Current weight: 118.841 kg Current weight in pounds: 262.00 Current BMI: 42.3 [place] body weight (based on NIH guidelines): 64.41 kg Excess body weight loss: The patient is a 52 year-old M who presents for Bariatric Assessment. Patient presents today for bariatric follow-up. He's had some myoclonus of GERD. Past Medical History Past Medical History: Diabetes Mellitus, Eye Disorder, Hypertension, Thyroid Disorder Additional Past Medical History / Comment(s): IDDM type II, neuropathy of bilat hands/legs, bilateral retinal bleeds with surgery, occasional pedal edema, esophagitis/gastritis, pulmonary htn, lumbar spondylosis/occasional back pain, past thyroid benign nodules. History of Any Multi-Drug Resistant Organisms: None Reported Past Surgical History: Bariatric Surgery, Cholecystectomy Additional Past Surgical History / Comment(s): EGD, partial thyroidectomy, bilateral eye surgeries for retinal bleeds. Sleeve 11/03/22. Past Anesthesia/Blood Transfusion Reactions: No Reported Reaction Additional Past Anesthesia/Blood Transfusion Reaction / Comm: no hx blood transfusion Past Psychological History: No Psychological Hx Reported Additional Psychological History / Comment(s): Pt resides family. Cane for long er distances. Smoking Status: Never smoker Past Alcohol Use History: Rare Past Drug Use History: None Reported - Past Family History Mother Family Medical History: No Reported History Additional Family Medical History / Comment(s): neuropathy Father Family Medical History: No Reported History Surgical - Exam Vital Signs Temp Pulse BP 97.6 F 102 H 129/78 12/01/22 13:31 12/01/22 13:31 12/01/22 13:31 - General well developed, well nourished, no distress - Eyes PERRL - Neck no masses - Respiratory normal expansion - Abdomen Abdomen: soft, non tender Bariatric Assessment & Plan Plan: Status post sleeve gastric. Patient's GERD is minimal will be observed. He'll follow-up in 4 weeks. Bariatric Checklist Checklist: Plan: Checklist: EGD: 1. Hiatal hernia: 2. H. Pylori: HgbA1c: Vitamin D: Smoking: Primary care physician referral: Dr. Meza Psychiatry clearance: Cardiology clearance: Sleep study: Diet journal: VTE risk score: VTE risk level: Rehab needs at discharge:
== END ==
LOC: BARWHC3 13:10
PROVIDERS: ATTEND Surgery
DX: Z09 Encounter for follow-up examination after completed treatment for conditions other than malignant neoplasm (principal); E66.01 Morbid (severe) obesity due to excess calories; I10 Essential (primary) hypertension; E11.40 Type 2 diabetes mellitus with diabetic neuropathy, unspecified; E07.9 Disorder of thyroid, unspecified; M47.816 Spondylosis without myelopathy or radiculopathy, lumbar region; K21.9 Gastro-esophageal reflux disease without esophagitis; Z68.41 Body mass index [BMI] 40.0-44.9, adult; Z79.4 Long term (current) use of insulin; Z79.890 Hormone replacement therapy; Z71.3 Dietary counseling and surveillance; Z79.899 Other long term (current) drug therapy; Z88.6 Allergy status to analgesic agent; Z88.8 Allergy status to other drugs, medicaments and biological substances
CPT/HCPCS: 97803; G0463; 99211

== ENCOUNTER → 2022-12-01 | Outpatient (CLI) | payer MEDICARE ==
[2022-12-02 02:26] LABS: HCT 54.7 % (39.6-50.0); HGB 17.4 d/dL (12.0-15.0); MCH 27.7 pg (27.0-32.0); MCHC 31.8 d/dL (32.0-37.0); Mean Platelet Volume 10.8 FL (9.5-12.2); NRBC Per 100 WBC 0 X 10*3/uL (0.00-0.01); Platelet Count 232 X 10*3/uL (140-440); RBC 6.29 X 10*6/uL (4.40-5.60); RDW 17.7 % (11.5-14.5); WBC 7.67 X 10*3/uL (4.50-10.00)
[2022-12-02 02:54] LABS: Magnesium 2.1 mg/dL (1.5-2.4)
[2022-12-02 02:55] LABS: % Iron Saturation 28.62 (15.00-50.00); ALT 55 U/L (10-49); AST 40 U/L (14-35); Albumin 4.4 d/dL (3.8-4.9); Albumin/Globulin Ratio 1.47 Ratio (1.60-3.17); Alkaline Phosphatase 91 U/L (41-126); BUN/Creat Ratio 10.36 Ratio (12.00-20.00); Blood Urea Nitrogen 11.4 mg/dL (9.0-27.0); Calcium 9.8 mg/dL (8.7-10.3); Carbon Dioxide 25.1 mmol/L (21.6-31.8); Chloride 99 mmol/L (96-109); Glucose 135 mg/dL (70-110); Iron 79 UG/DL (65-175); Potassium 4.5 mmol/L (3.5-5.5); Sodium 141 mmol/L (135-145); Total Bilirubin 1.1 mg/dL (0.3-1.2); Total Iron Binding Capacity 276 UG/DL (228-460); Total Protein 7.4 d/dL (6.2-8.2)
[2022-12-02 12:40] LABS: Zinc, Serum 87 ug/dL (60-130)
== END | disposition home or self-care (01) ==
LOC: LABWHC1 14:26
PROVIDERS: ATTEND Surgery
DX: E66.01 Morbid (severe) obesity due to excess calories (principal); D50.8 Other iron deficiency anemias; E44.0 Moderate protein-calorie malnutrition; E55.9 Vitamin D deficiency, unspecified; T56.894A Toxic effect of other metals, undetermined, initial encounter
CPT/HCPCS: 36415; 80053; 82306; 82607; 82728; 82746; 83540; 83550; 83735; 84255; 84425; 84443; 84630; 85027

== ENCOUNTER → 2023-02-09 | Outpatient (CLI) | payer MEDICARE ==
[2023-02-09 13:00] VITALS: BP 133/70; PULSE 86; TEMP 97.8; BMI 40.5
[2023-02-09 21:25] LABS: HCT 47.6 % (39.6-50.0); HGB 15.2 d/dL (13.0-17.0); MCH 28.5 pg (27.0-32.0); MCHC 31.9 d/dL (32.0-37.0); MCV 89.1 FL (80.0-97.0); NRBC Per 100 WBC 0 X 10*3/uL (0.00-0.01); Platelet Count 271 X 10*3/uL (140-440); RBC 5.34 X 10*6/uL (4.40-5.60); RDW 16.1 % (11.5-14.5); WBC 9.64 X 10*3/uL (4.50-10.00)
[2023-02-09 21:50] LABS: ALT 16 U/L (10-49); AST 22 U/L (14-35); Albumin 4.2 d/dL (3.8-4.9); Alkaline Phosphatase 96 U/L (41-126); BUN/Creat Ratio 10.36 Ratio (12.00-20.00); Blood Urea Nitrogen 11.4 mg/dL (9.0-27.0); Calcium 10.1 mg/dL (8.7-10.3); Carbon Dioxide 31.8 mmol/L (21.6-31.8); Chloride 99 mmol/L (96-109); Globulin 2.8 d/dL (1.6-3.3); Glucose 102 mg/dL (70-110); Iron 64 UG/DL (65-175); Magnesium 2.2 mg/dL (1.5-2.4); Potassium 4.2 mmol/L (3.5-5.5); Sodium 141 mmol/L (135-145); Total Bilirubin 0.6 mg/dL (0.3-1.2); Total Iron Binding Capacity 287 UG/DL (228-460)
[2023-02-10 12:51] LABS: Zinc, Serum 57 ug/dL (60-130)
== END ==
LOC: BARWHC3 09:04
PROVIDERS: ATTEND Surgery
DX: E66.01 Morbid (severe) obesity due to excess calories (principal); D50.8 Other iron deficiency anemias; E44.0 Moderate protein-calorie malnutrition; E55.9 Vitamin D deficiency, unspecified; T56.894A Toxic effect of other metals, undetermined, initial encounter; Z68.41 Body mass index [BMI] 40.0-44.9, adult; Z71.3 Dietary counseling and surveillance; Z91.018 Allergy to other foods; Z88.8 Allergy status to other drugs, medicaments and biological substances
CPT/HCPCS: 84255; 84425; 80053; 82607; 82728; 82746; 83540; 83550; 83735; 84443; 84590; 84630; 85027; 82306; 97803; G0463; 99211

== ENCOUNTER → 2023-04-06 | Outpatient (CLI) | payer MEDICARE ==
[2023-04-06 10:15] VITALS: BP 145/79; PULSE 68; TEMP 97.7; BMI 40.7
--- NOTE | 2023-04-08 08:22 | P.HPBAR ---
Bariatric H&P - History & Physicial H&P Date: 04/06/23 History & Physicial: Visit/CC: sleeve F/U Patient initial contact: Initial weight: Initial weight in pounds: Height: 5 ft 6 in Initial BMI: Last weight: Current weight: 114.487 kg Current weight in pounds: 252.40 Current BMI: 40.7 [place] body weight (based on NIH guidelines): 64.41 kg Excess body weight loss: The patient is a 53 year-old M who presents for Bariatric Assessment. Patient presents today for sleeve gastrectomy fall. He has minimal GERD. As weight has been has been stable. Denies any significant dysphagia. Past Medical History Past Medical History: Diabetes Mellitus, Eye Disorder, Hypertension, Thyroid Disorder Additional Past Medical History / Comment(s): IDDM type II, neuropathy of bilat hands/legs, bilateral retinal bleeds with surgery, occasional pedal edema, esophagitis/gastritis, pulmonary htn, lumbar spondylosis/occasional back pain, past thyroid benign nodules. History of Any Multi-Drug Resistant Organisms: None Reported Past Surgical History: Bariatric Surgery, Cholecystectomy Additional Past Surgical History / Comment(s): EGD, partial thyroidectomy, bilateral eye surgeries for retinal bleeds. Sleeve 11/03/22. Past Anesthesia/Blood Transfusion Reactions: No Reported Reaction Additional Past Anesthesia/Blood Transfusion Reaction / Comm: no hx blood transfusion Past Psychological History: No Psychological Hx Reported Additional Psychological History / Comment(s): Pt resides family. Cane for longer distances. Smoking Status: Never smoker Past Alcohol Use History: Rare Past Drug Use History: None Reported - Past Family History Mother Family Medical History: No Reported History Additional Family Medical History / Comment(s): neuropathy Father Family Medical History: No Reported History Surgical - Exam Vital Signs Temp Pulse BP 97.7 F 68 145/79 04/06/23 10:09 04/06/23 10:09 04/06/23 10:09 - General well developed, well nourished - Eyes PERRL - Abdomen Abdomen: soft, non tender Bariatric Assessment & Plan Plan: Patient's GERD is minimal elevated observed. He'll follow-up in 4 weeks. Bariatric Checklist Checklist: Plan: Checklist: EGD: 1. Hiatal hernia: 2. H. Pylori: HgbA1c: Vitamin D: Smoking: Primary care physician referral: Dr. Meza Psychiatry clearance: Cardiology clearance: Sleep study: Diet journal: VTE risk score: VTE risk level: Rehab needs at discharge:
== END ==
LOC: BARWHC3 09:54
PROVIDERS: ATTEND Surgery
DX: K21.9 Gastro-esophageal reflux disease without esophagitis (principal); H57.89 Other specified disorders of eye and adnexa; E11.40 Type 2 diabetes mellitus with diabetic neuropathy, unspecified; Z13.810 Encounter for screening for upper gastrointestinal disorder; Z91.018 Allergy to other foods; Z79.4 Long term (current) use of insulin; Z79.890 Hormone replacement therapy
CPT/HCPCS: 99211

== ENCOUNTER → 2023-05-04 | Outpatient (CLI) | payer MEDICARE ==
[2023-05-04 08:59] VITALS: BP 124/68; PULSE 64; TEMP 97.6; BMI 39.6
--- NOTE | 2023-05-04 12:26 | P.HPBAR ---
Bariatric H&P - History & Physicial H&P Date: 05/04/23 History & Physicial: Visit/CC: 6 month sleeve F/U Patient initial contact: Initial weight: Initial weight in pounds: Height: 5 ft 6 in Initial BMI: Last weight: Current weight: 111.584 kg Current weight in pounds: 246.00 Current BMI: 39.6 [place] body weight (based on NIH guidelines): 64.41 kg Excess body weight loss: The patient is a 53 year-old M who presents for Bariatric Assessment. Patient presents today for sleeve yesterday fall. He's lost another 6 pounds since last visit. He's had mild placed and GERD. He otherwise feels well. Past Medical History Past Medical History: Diabetes Mellitus, Eye Disorder, Hypertension, Thyroid Disorder Additional Past Medical History / Comment(s): IDDM type II, neuropathy of bilat hands/legs, bilateral retinal bleeds with surgery, occasional pedal edema, esophagitis/gastritis, pulmonary htn, lumbar spondylosis/occasional back pain, past thyroid benign nodules. History of Any Multi-Drug Resistant Organisms: None Reported Past Surgical History: Bariatric Surgery, Cholecystectomy Additional Past Surgical History / Comment(s): EGD, partial thyroidectomy, bilateral eye surgeries for retinal bleeds. Sleeve 11/03/22. Past Anesthesia/Blood Transfusion Reactions: No Reported Reaction Additional Past Anesthesia/Blood Transfusion Reaction / Comm: no hx blood transfusion Past Psychological History: No Psychological Hx Reported Additional Psychological History / Comment(s): Pt resides family. Cane for longer distances. Smoking Status: Never smoker Past Alcohol Use History: Rare Past Drug Use History: None Reported - Past Family History Mother Family Medical History: No Reported History Additional Family Medical History / Comment(s): neuropathy Father Family Medical History: No Reported History Surgical - Exam Vital Signs Temp Pulse BP 97.6 F 64 124/68 05/04/23 08:36 05/04/23 08:36 05/04/23 08:36 - General well developed, well nourished, no distress - Eyes PERRL - ENT normal pinna - Neck no masses - Respiratory normal expansion - Cardiovascular Rhythm: regular - Abdomen Abdomen: soft, non tender Bariatric Assessment & Plan Plan: Patient's GERD is minimal old observed. He'll follow-up in 4 weeks. Bariatric Checklist Checklist: Plan: Checklist: EGD: 1. Hiatal hernia: 2. H. Pylori: HgbA1c: Vitamin D: Smoking: Primary care physician referral: Dr. Meza Psychiatry clearance: Cardiology clearance: Sleep study: Diet journal: VTE risk score: VTE risk level: Rehab needs at discharge:
== END ==
LOC: BARWHC3 07:57
PROVIDERS: ATTEND Surgery
DX: E66.01 Morbid (severe) obesity due to excess calories (principal); K21.9 Gastro-esophageal reflux disease without esophagitis; Z90.49 Acquired absence of other specified parts of digestive tract; Z98.84 Bariatric surgery status; Z91.018 Allergy to other foods; Z88.3 Allergy status to other anti-infective agents; Z71.3 Dietary counseling and surveillance
CPT/HCPCS: 97803; G0463; 99211

== ENCOUNTER → 2023-05-04 | Outpatient (CLI) | payer MEDICARE ==
[2023-05-04 16:07] LABS: HCT 50.2 % (39.6-50.0); HGB 16.3 g/dL (13.0-17.0); MCH 29.4 pg (27.0-32.0); MCHC 32.5 g/dL (32.0-37.0); MCV 90.5 FL (80.0-97.0); Mean Platelet Volume 10.3 FL (9.5-12.2); NRBC Per 100 WBC 0 X 10*3/uL (0.00-0.01); Platelet Count 233 X 10*3/uL (140-440); RBC 5.55 X 10*6/uL (4.40-5.60); RDW 14.3 % (11.5-14.5); WBC 6.25 X 10*3/uL (4.50-10.00)
[2023-05-04 16:55] LABS: % Iron Saturation 27.76 (15.00-50.00); ALT 20 U/L (10-49); AST 22 U/L (14-35); Albumin 4.2 g/dL (3.8-4.9); Alkaline Phosphatase 98 U/L (41-126); BUN/Creat Ratio 15.56 Ratio (12.00-20.00); Calcium 9.8 mg/dL (8.7-10.3); Chloride 99 mmol/L (96-109); Glucose 113 mg/dL (70-110); Iron 93 UG/DL (65-175); Magnesium 2.1 mg/dL (1.5-2.4); Potassium 3.8 mmol/L (3.5-5.5); Sodium 141 mmol/L (135-145); Total Bilirubin 0.7 mg/dL (0.3-1.2); Total Iron Binding Capacity 335 UG/DL (228-460); Total Protein 7.2 g/dL (6.2-8.2)
[2023-05-05 11:28] LABS: Zinc, Serum 77 ug/dL (60-130)
== END | disposition home or self-care (01) ==
LOC: LABPAT 09:32
PROVIDERS: ATTEND Surgery
DX: E66.01 Morbid (severe) obesity due to excess calories (principal); D50.8 Other iron deficiency anemias; E44.0 Moderate protein-calorie malnutrition; E55.9 Vitamin D deficiency, unspecified; T56.894A Toxic effect of other metals, undetermined, initial encounter
CPT/HCPCS: 80053; 82306; 82607; 82728; 82746; 83540; 83550; 83735; 84255; 84425; 84443; 84590; 84630; 85027

== ENCOUNTER → 2023-06-08 | Outpatient (CLI) | payer MEDICARE ==
[2023-06-08 09:38] VITALS: BP 144/74; PULSE 104; TEMP 97.7; BMI 38.5
--- NOTE | 2023-07-14 12:25 | P.HPBAR ---
Bariatric H&P - History & Physicial H&P Date: 06/08/23 History & Physicial: Visit/CC: F/U Patient initial contact: Initial weight: Initial weight in pounds: Height: 5 ft 6 in Initial BMI: Last weight: Current weight: 108.409 kg Current weight in pounds: 239.00 Current BMI: 38.5 [place] body weight (based on NIH guidelines): 64.41 kg Excess body weight loss: The patient is a 53 year-old M who presents for Bariatric Assessment. Patient presents for Gregorio follow-up. He has had no complaints of gerd. He has had excellent weight loss. Past Medical History Past Medical History: Diabetes Mellitus, Eye Disorder, Hypertension, Thyroid Dis order Additional Past Medical History / Comment(s): IDDM type II, neuropathy of bilat hands/legs, bilateral retinal bleeds with surgery, occasional pedal edema, esophagitis/gastritis, pulmonary htn, lumbar spondylosis/occasional back pain, past thyroid benign nodules. History of Any Multi-Drug Resistant Organisms: None Reported Past Surgical History: Bariatric Surgery, Cholecystectomy Additional Past Surgical History / Comment(s): EGD, partial thyroidectomy, bilateral eye surgeries for retinal bleeds. Sleeve 11/03/22. Past Anesthesia/Blood Transfusion Reactions: No Reported Reaction Additional Past Anesthesia/Blood Transfusion Reaction / Comm: no hx blood transfusion Past Psychological History: No Psychological Hx Reported Additional Psychological History / Comment(s): Pt resides family. Cane for longer distances. Smoking Status: Never smoker Past Alcohol Use History: Rare Past Drug Use History: None Reported - Past Family History Mother Family Medical History: No Reported History Additional Family Medical History / Comment(s): neuropathy Father Family Medical History: No Reported History Surgical - Exam Vital Signs Temp Pulse BP 97.7 F 104 H 144/74 06/08/23 09:16 06/08/23 09:16 06/08/23 09:16 - General well developed, well nourished, no distress - Eyes PERRL - ENT normal pinna - Neck no masses - Respiratory normal expansion - Cardiovascular Rhythm: regular - Abdomen Abdomen: soft, non tender Bariatric Assessment & Plan Plan: Resolving Movisse. Patient is gerd is minimal elevated 0. Will follow-up in 4 weeks. Bariatric Checklist Checklist: Plan: Checklist: EGD: 1. Hiatal hernia: 2. H. Pylori: HgbA1c: Vitamin D: Smoking: Primary care physician referral: Dr. Meza Psychiatry clearance: Cardiology clearance: Sleep study: Diet journal: VTE risk score: VTE risk level: Rehab needs at discharge:
== END ==
LOC: BARWHC3 09:03
PROVIDERS: ATTEND Surgery
DX: Z09 Encounter for follow-up examination after completed treatment for conditions other than malignant neoplasm (principal); K21.9 Gastro-esophageal reflux disease without esophagitis; I10 Essential (primary) hypertension; E11.40 Type 2 diabetes mellitus with diabetic neuropathy, unspecified; I27.20 Pulmonary hypertension, unspecified; E07.9 Disorder of thyroid, unspecified; M47.816 Spondylosis without myelopathy or radiculopathy, lumbar region; Z86.39 Personal history of other endocrine, nutritional and metabolic disease; Z98.890 Other specified postprocedural states; Z86.69 Personal history of other diseases of the nervous system and sense organs; Z87.19 Personal history of other diseases of the digestive system; Z98.84 Bariatric surgery status; Z91.018 Allergy to other foods; Z88.8 Allergy status to other drugs, medicaments and biological substances; Z79.4 Long term (current) use of insulin; Z79.890 Hormone replacement therapy; Z79.84 Long term (current) use of oral hypoglycemic drugs
CPT/HCPCS: 99211

== ENCOUNTER → 2023-07-13 | Outpatient (CLI) | payer MEDICARE ==
[2023-07-13 09:42] VITALS: BP 121/75; PULSE 69; TEMP 98; BMI 38.2
--- NOTE | 2023-07-13 14:52 | P.HPBAR ---
Bariatric H&P - History & Physicial H&P Date: 07/13/23 History & Physicial: Visit/CC: sleeve F/U Patient initial contact: Initial weight: Initial weight in pounds: Height: 5 ft 6 in Initial BMI: Last weight: Current weight: 107.501 kg Current weight in pounds: 237.00 Current BMI: 38.2 [place] body weight (based on NIH guidelines): 64.41 kg Excess body weight loss: The patient is a 53 year-old M who presents for Bariatric Assessment. Patient presents for bariatric follow-up. He is lost 2 pounds since his last visit. He has minimal gerd. He otherwise feels well. Past Medical History Past Medical History: Diabetes Mellitus, Eye Disorder, Hypertension, Thyroid Disorder Additional Past Medical History / Comment(s): IDDM type II, neuropathy of bilat hands/legs, bilateral retinal bleeds with surgery, occasional pedal edema, esophagitis/gastritis, pulmonary htn, lumbar spondylosis/occasional back pain, past thyroid benign nodules. History of Any Multi-Drug Resistant Organisms: None Reported Past Surgical History: Bariatric Surgery, Cholecystectomy Additional Past Surgical History / Comment(s): EGD, partial thyroidectomy, bilat eral eye surgeries for retinal bleeds. Sleeve 11/03/22. Past Anesthesia/Blood Transfusion Reactions: No Reported Reaction Additional Past Anesthesia/Blood Transfusion Reaction / Comm: no hx blood transfusion Past Psychological History: No Psychological Hx Reported Additional Psychological History / Comment(s): Pt resides family. Cane for longer distances. Smoking Status: Never smoker Past Alcohol Use History: Rare Past Drug Use History: None Reported - Past Family History Mother Family Medical History: No Reported History Additional Family Medical History / Comment(s): neuropathy Father Family Medical History: No Reported History Surgical - Exam Vital Signs Temp Pulse BP 98 F 69 121/75 07/13/23 09:10 07/13/23 09:10 07/13/23 09:10 - General well developed, well nourished, no distress - Eyes PERRL - Abdomen Abdomen: soft, non tender Bariatric Assessment & Plan Plan: Status post sleeve yesterday. Patient gerd is minimal will be observed. S will follow-up in 1 month. Bariatric Checklist Checklist: Plan: Checklist: EGD: 1. Hiatal hernia: 2. H. Pylori: HgbA1c: Vitamin D: Smoking: Primary care physician referral: Dr. Meza Psychiatry clearance: Cardiology clearance: Sleep study: Diet journal: VTE risk score: VTE risk level: Rehab needs at discharge:
== END ==
LOC: BARWHC3 08:49
PROVIDERS: ATTEND Surgery
DX: K21.9 Gastro-esophageal reflux disease without esophagitis (principal); I10 Essential (primary) hypertension; E07.9 Disorder of thyroid, unspecified; E11.40 Type 2 diabetes mellitus with diabetic neuropathy, unspecified; I27.20 Pulmonary hypertension, unspecified; M47.816 Spondylosis without myelopathy or radiculopathy, lumbar region; Z85.850 Personal history of malignant neoplasm of thyroid; Z98.84 Bariatric surgery status; Z86.69 Personal history of other diseases of the nervous system and sense organs; Z98.890 Other specified postprocedural states; Z86.79 Personal history of other diseases of the circulatory system; Z91.018 Allergy to other foods; Z88.8 Allergy status to other drugs, medicaments and biological substances; Z79.4 Long term (current) use of insulin; Z79.890 Hormone replacement therapy; Z79.84 Long term (current) use of oral hypoglycemic drugs
CPT/HCPCS: 99211

== ENCOUNTER → 2023-08-11 | Outpatient (CLI) | payer MEDICARE ==
[2023-08-11 11:22] LABS: HCT 47.9 % (39.6-50.0); HGB 15.5 g/dL (13.0-17.0); MCHC 32.4 g/dL (32.0-37.0); MCV 89.5 FL (80.0-97.0); Mean Platelet Volume 10.5 FL (9.5-12.2); NRBC Per 100 WBC 0 X 10*3/uL (0.00-0.01); Platelet Count 216 X 10*3/uL (140-440); RBC 5.35 X 10*6/uL (4.40-5.60); RDW 14.3 % (11.5-14.5); WBC 6.85 X 10*3/uL (4.50-10.00)
[2023-08-11 12:02] LABS: % Iron Saturation 19.51 (15.00-50.00); ALT 18 U/L (10-49); AST 17 U/L (14-35); Albumin 4.2 g/dL (3.8-4.9); Alkaline Phosphatase 90 U/L (41-126); Blood Urea Nitrogen 17.8 mg/dL (9.0-27.0); Calcium 9.5 mg/dL (8.7-10.3); Carbon Dioxide 31.6 mmol/L (21.6-31.8); Chloride 100 mmol/L (96-109); Glucose 77 mg/dL (70-110); Iron 71 UG/DL (65-175); Potassium 3.6 mmol/L (3.5-5.5); Sodium 143 mmol/L (135-145); Total Bilirubin 0.6 mg/dL (0.3-1.2); Total Iron Binding Capacity 364 UG/DL (228-460); Total Protein 7.2 g/dL (6.2-8.2)
[2023-08-12 12:27] LABS: Zinc, Serum 90 ug/dL (60-130)
[2023-08-13 06:04] LABS: Vitamin A 37 ug/dL (38-106)
[2023-08-13 10:59] LABS: Vit B1(Thiamine) 65 ug/L (38-122)
== END | disposition home or self-care (01) ==
LOC: LABWHC1 07:15
PROVIDERS: ATTEND Surgery
DX: E66.01 Morbid (severe) obesity due to excess calories (principal); E55.9 Vitamin D deficiency, unspecified; E44.0 Moderate protein-calorie malnutrition; T56.894A Toxic effect of other metals, undetermined, initial encounter
CPT/HCPCS: 36415; 80053; 82306; 82607; 82728; 82746; 83540; 83550; 83735; 84255; 84425; 84443; 84590; 84630; 85027

== ENCOUNTER → 2023-08-31 | Outpatient (CLI) | payer MEDICARE ==
[2023-08-31 10:08] VITALS: BMI 38.0
[2023-08-31 12:19] VITALS: BP 117/74; PULSE 67; TEMP 97.8
--- NOTE | 2023-09-03 13:02 | P.HPBAR ---
Bariatric H&P - History & Physicial H&P Date: 08/31/23 History & Physicial: Visit/CC: sleeve F/U Patient initial contact: Initial weight: Initial weight in pounds: Height: 5 ft 6 in Initial BMI: Last weight: Current weight: 106.866 kg Current weight in pounds: 235.60 Current BMI: 38.0 [place] body weight (based on NIH guidelines): 64.41 kg Excess body weight loss: The patient is a 53 year-old M who presents for Bariatric Assessment.patient resents today for Alan fall. He has minimal complaints of GERD. He denies any significant dysphagia. Past Medical History Past Medical History: Diabetes Mellitus, Eye Disorder, Hypertension, Thyroid Disorder Additional Past Medical History / Comment(s): IDDM type II, neuropathy of bilat hands/legs, bilateral retinal bleeds with surgery, occasional pedal edema, eso phagitis/gastritis, pulmonary htn, lumbar spondylosis/occasional back pain, past thyroid benign nodules. History of Any Multi-Drug Resistant Organisms: None Reported Past Surgical History: Bariatric Surgery, Cholecystectomy Additional Past Surgical History / Comment(s): EGD, partial thyroidectomy, bilateral eye surgeries for retinal bleeds. Sleeve 11/03/22. Past Anesthesia/Blood Transfusion Reactions: No Reported Reaction Additional Past Anesthesia/Blood Transfusion Reaction / Comm: no hx blood transfusion Past Psychological History: No Psychological Hx Reported Additional Psychological History / Comment(s): Pt resides family. Cane for longer distances. Smoking Status: Never smoker Past Alcohol Use History: Rare Past Drug Use History: None Reported - Past Family History Mother Family Medical History: No Reported History Additional Family Medical History / Comment(s): neuropathy Father Family Medical History: No Reported History Surgical - Exam Vital Signs Temp Pulse BP 97.8 F 67 117/74 08/31/23 11:39 08/31/23 11:39 08/31/23 11:39 - General well developed, well nourished, no distress - Eyes PERRL - ENT normal pinna, normal nares - Neck no masses - Respiratory normal expansion - Cardiovascular Rhythm: regular - Abdomen Abdomen: soft, non tender Bariatric Assessment & Plan Plan: patient's GERD is minimal user. He'll follow-up in 4 weeks. Bariatric Checklist Checklist: Plan: Checklist: EGD: 1. Hiatal hernia: 2. H. Pylori: HgbA1c: Vitamin D: Smoking: Primary care physician referral: Dr. Meza Psychiatry clearance: Cardiology clearance: Sleep study: Diet journal: VTE risk score: VTE risk level: Rehab needs at discharge:
== END ==
LOC: BARWHC3 08:56
PROVIDERS: ATTEND Surgery
DX: E66.01 Morbid (severe) obesity due to excess calories (principal); Z71.3 Dietary counseling and surveillance; Z91.018 Allergy to other foods; Z88.1 Allergy status to other antibiotic agents
CPT/HCPCS: 97803; G0463; 99211

== ENCOUNTER → 2023-09-21 | Day surgery (SDC) | payer MEDICARE ==
[~2023-09-21] MED LIST changes: -DEXAMETHASONE SOD PHOSPHATE 4 MG/ML 1 ML VIAL IV ONE; -ENOXAPARIN 40 MG/0.4 ML SYRINGE SQ PRN; +LIDOCAINE 1% INJ 10MG/ML (20 ML MDV) ONE; -ONDANSETRON 4 MG/2 ML VIAL IVP ONE; +PROPOFOL 10 MG/ML 20 ML VIAL IV ONE; -ceFAZolin 3 GM in SODIUM CHLORIDE 0.9% 100 ML IVPB PRN
[2023-09-21 12:20] VITALS: TEMP 97.5
[2023-09-21] MEDS: LACTATED RINGERS 1,000 ML IV SCH (12:35)
[2023-09-21 12:46] LABS: Glucose,Whole Blood 112 mg/dL (70-110)
--- NOTE | 2023-09-21 13:09 | P.GSHP ---
History of Present Illness H&P Date: 09/21/23 Chief Complaint: history of constipation this is a 53-year-old male who issues constipation. Patient presents today for screening colonoscopy to evaluate constipation. Past Medical History Past Medical History: Diabetes Mellitus, Eye Disorder, Hypertension, Skin Disorder, Thyroid Disorder Additional Past Medical History / Comment(s): IDDM type II, neuropathy of bilat hands/legs, bilateral retinal bleeds with surgery, occasional pedal edema, esophagitis/gastritis, pulmonary htn, lumbar spondylosis/occasional back pain, past thyroid benign nodules. small wound right kauffman History of Any Multi-Drug Resistant Organisms: None Reported Past Surgical History: Bariatric Surgery, Cholecystectomy Additional Past Surgical History / Comment(s): EGD, partial thyroidectomy, bilateral eye surgeries for retinal bleeds. Sleeve 11/03/22. Past Anesthesia/Blood Transfusion Reactions: No Reported Reaction Additional Past Anesthesia/Blood Transfusion Reaction / Comment(s): no hx blood transfusion Smoking Status: Never smoker - Past Family History Mother Family Medical History: No Reported History Additional Family Medical History / Comment(s): neuropathy Father Family Medical History: No Reported History Medications and Allergies Home Medications Medication Instructions Recorded Confirmed Type Atorvastatin [Lipitor] 10 mg PO 219901/20/22 09/17/23 History Gabapentin [Neurontin] 800 mg PO TID 01/20/22 09/17/23 History Insulin Glargine,Hum.rec.anlog 80 units SQ 219901/20/22 09/17/23 History [Toujeo Max Solostar] Levothyroxine Sodium 25 mcg PO 219901/20/22 09/17/23 History Pioglitazone [Actos] 30 mg PO 219901/20/22 09/17/23 History traMADol HCL 100 mg PO TID 01/20/22 09/17/23 History Multivitamin [Multivitamins Adult 1 tab PO QAM 10/30/22 09/17/23 History Gummies] cloNIDine HCL [Catapres] 0.1 mg PO TID 09/17/23 09/17/23 History hydroCHLOROthiazide [Hydrodiuril] 25 mg PO HS 09/17/23 09/17/23 History Allergies Allergy/AdvReac Type Severity Reaction Status Date / Time melon Allergy Anaphylaxis Verified 09/17/23 15:19 NAKUL Inhibitors AdvReac Cough Verified 09/17/23 15:19 Surgical - Exam Vital Signs Temp Pulse Resp BP Pulse Ox 97.5 F L 73 16 117/55 99 09/21/23 12:19 09/21/23 12:19 09/21/23 12:19 09/21/23 12:19 09/21/23 12:19 - General well developed, well nourished, no distress - Eyes PERRL - ENT normal pinna - Neck no masses - Respiratory normal expansion - Cardiovascular Rhythm: regular - Abdomen Abdomen: soft, non tender Results - Labs Abnormal Lab Results - Last 24 Hours (Table) 09/21/23 Range/Units 12:31 POC Glucose (mg/dL) 112 H (70-110) mg/dL Assessment and Plan Assessment: history conservation. We'll perform colonoscopy.
--- NOTE | 2023-09-21 13:29 | P.OP ---
Date of Procedure: 09/21/23 Preoperative Diagnosis: constipation, screening colonoscopy Postoperative Diagnosis: normal colon Procedure(s) Performed: colonoscopy Anesthesia: MAC Surgeon: Cleve Victoria Pathology: none sent Condition: stable Disposition: PACU Description of Procedure: PROCEDURE: The patient was placed on the endoscopy table in the lateral position. Digital rectal examination was performed which revealed no abnormalities. The prostate was symmetrical without nodules. Flexible colonoscope was then placed in the patient's anus and passed throughout the entire colon. The ileocecal valve was visualized. The cecum, ascending, transverse, descending and sigmoid colon were normal. The rectum was normal as well. There were no masses, polyps or diverticula noted in the entire colon. SUMMARY OF FINDINGS: Normal colonoscopy.
[2023-09-21 13:51] VITALS: BP 112/64; PULSE 58; RESP 18
[2023-09-21 14:05] LABS: Glucose,Whole Blood 101 mg/dL (70-110)
== END ==
LOC: ORWHC2ENDO 12:05
PROVIDERS: ATTEND Surgery
DX: K59.00 Constipation, unspecified (principal); E11.9 Type 2 diabetes mellitus without complications; I10 Essential (primary) hypertension; E07.9 Disorder of thyroid, unspecified; Z79.4 Long term (current) use of insulin; Z90.49 Acquired absence of other specified parts of digestive tract; Z98.890 Other specified postprocedural states; Z90.89 Acquired absence of other organs; Z79.84 Long term (current) use of oral hypoglycemic drugs; Z79.899 Other long term (current) drug therapy; Z91.018 Allergy to other foods

== ENCOUNTER → 2023-10-26 | Outpatient (CLI) | payer MEDICARE ==
[2023-10-26 13:25] VITALS: BP 124/78; PULSE 74; RESP 16; TEMP 98.3
--- NOTE | 2023-10-27 09:32 | P.HPBAR ---
Bariatric H&P - History & Physicial H&P Date: 10/26/23 History & Physicial: Visit/CC: 1 year follow up Patient initial contact: Initial weight: Initial weight in pounds: Height: 5 ft 6 in Initial BMI: Last weight: Current weight: 107.501 kg Current weight in pounds: 237.00 Current BMI: [place] body weight (based on NIH guidelines): Excess body weight loss: The patient is a 53 year-old M who presents for Bariatric Assessment.patient resents today for Alan fall. Patient weight has remained stable. He's had some minimal GERD. Past Medical History Past Medical History: Diabetes Mellitus, Eye Disorder, Hypertension, Skin Disorder, Thyroid Disorder Additional Past Medical History / Comment(s): IDDM type II, neuropathy of bilat hands/legs, bilateral retinal bleeds with surgery, occasional pedal edema, es ophagitis/gastritis, pulmonary htn, lumbar spondylosis/occasional back pain, past thyroid benign nodules. small wound right kauffman History of Any Multi-Drug Resistant Organisms: None Reported Past Surgical History: Bariatric Surgery, Cholecystectomy Additional Past Surgical History / Comment(s): EGD, partial thyroidectomy, bi lateral eye surgeries for retinal bleeds. Sleeve 11/03/22. Past Anesthesia/Blood Transfusion Reactions: No Reported Reaction Additional Past Anesthesia/Blood Transfusion Reaction / Comm: no hx blood transfusion Past Psychological History: No Psychological Hx Reported Additional Psychological History / Comment(s): Pt resides family. Cane for longer distances. Smoking Status: Never smoker Past Alcohol Use History: Rare Past Drug Use History: Marijuana Additional Drug Use History / Comment(s): vapes occasionally - Past Family History Mother Family Medical History: No Reported History Additional Family Medical History / Comment(s): neuropathy Father Family Medical History: No Reported History Surgical - Exam Vital Signs Temp Pulse Resp BP 98.3 F 74 16 124/78 10/26/23 08:30 10/26/23 08:30 10/26/23 08:30 10/26/23 08:30 - General well developed, well nourished, no distress - Eyes PERRL - ENT normal pinna - Neck no masses - Respiratory normal expansion - Cardiovascular Rhythm: regular - Abdomen Abdomen: soft, non tender Bariatric Assessment & Plan Plan: resolving morbid obese. Patient's GERD is minimal observed. He'll follow-up in 3 months. Bariatric Checklist Checklist: Plan: Checklist: EGD: 1. Hiatal hernia: 2. H. Pylori: HgbA1c: Vitamin D: Smoking: Primary care physician referral: Dr. Meza Psychiatry clearance: Cardiology clearance: Sleep study: Diet journal: VTE risk score: VTE risk level: Rehab needs at discharge:
== END ==
LOC: BARWHC3 09:13
PROVIDERS: ATTEND Surgery
DX: K21.9 Gastro-esophageal reflux disease without esophagitis (principal); E66.01 Morbid (severe) obesity due to excess calories; F17.290 Nicotine dependence, other tobacco product, uncomplicated; Z68.38 Body mass index [BMI] 38.0-38.9, adult; Z98.84 Bariatric surgery status; Z88.8 Allergy status to other drugs, medicaments and biological substances; Z91.018 Allergy to other foods
CPT/HCPCS: 99211

== ENCOUNTER → 2024-01-04 | Outpatient (CLI) | payer MEDICARE ==
--- NOTE | 2024-02-08 10:58 | CONS ---
CONSULTATION I saw Mr. Stacy in the [facility]. The patient has minimal complaints. He has some mild GERD. He has lost 5 pounds last visit. PHYSICAL EXAMINATION: VITAL SIGNS: Stable. ABDOMEN: Soft. Incisions are well healed. Resolving morbid obese. The patient's GERD is minimal He will follow up in 4 weeks. MMODL / IJN: [id number] /
== END ==
LOC: BARWHC3 09:30
PROVIDERS: ATTEND Surgery
CPT/HCPCS: 99211

== ENCOUNTER → 2024-03-28 | Outpatient (CLI) | payer MEDICARE ==
[2024-03-28 09:14] VITALS: BP 119/66; PULSE 72; RESP 16; TEMP 97.8; BMI 39.4
--- NOTE | 2024-03-28 14:05 | P.HPBAR ---
Bariatric H&P - History & Physicial H&P Date: 03/28/24 History & Physicial: Visit/CC: follow up Patient initial contact: Initial weight: Initial weight in pounds: Height: 5 ft 6 in Initial BMI: Last weight: Current weight: 110.677 kg Current weight in pounds: 244.00 Current BMI: 39.4 [place] body weight (based on NIH guidelines): 64.41 kg Excess body weight loss: The patient is a 54 year-old M who presents for Bariatric Assessment. Presents today for bariatric follow-up. He is gained 7 pounds. He has had minimal gerd. Past Medical History Past Medical History: Diabetes Mellitus, Eye Disorder, Hypertension, Skin Disorder, Thyroid Disorder Additional Past Medical History / Comment(s): IDDM type II, neuropathy of bilat hands/legs, bilateral retinal bleeds with surgery, occasional pedal edema, esophagitis/gastritis, pulmonary htn, lumbar spondylosis/occasional back pain, past thyroid benign nodules. History of Any Multi-Drug Resistant Organisms: None Reported Past Surgical History: Bariatric Surgery, Cholecystectomy Additional Past Surgical History / Comment(s): EGD, partial thyroidectomy, bilateral eye surgeries for retinal bleeds. Sleeve 11/03/22. Past Anesthesia/Blood Transfusion Reactions: No Reported Reaction Additional Past Anesthesia/Blood Transfusion Reaction / Comm: no hx blood transfusion Past Psychological History: No Psychological Hx Reported Additional Psychological History / Comment(s): Cane for longer distances. Smoking Status: Never smoker Past Alcohol Use History: Rare Past Drug Use History: Marijuana Additional Drug Use History / Comment(s): vapes occasionally - Past Family History Mother Family Medical History: No Reported History Additional Family Medical History / Comment(s): neuropathy Father Family Medical History: No Reported History Surgical - Exam Vital Signs Temp Pulse Resp BP 97.8 F 72 16 119/66 03/28/24 09:08 03/28/24 09:08 03/28/24 09:08 03/28/24 09:08 - General well developed, no distress - Eyes PERRL - ENT normal pinna - Neck no masses - Respiratory normal expansion - Cardiovascular Rhythm: regular - Abdomen Abdomen: soft, non tender Bariatric Assessment & Plan Plan: Status post sleeve gastric. Patient is gerd is minimal will be observed. He will follow-up in 4 weeks. Bariatric Checklist Checklist: Plan: Checklist: EGD: 1. Hiatal hernia: 2. H. Pylori: HgbA1c: Vitamin D: Smoking: Primary care physician referral: Dr. Meza Psychiatry clearance: Cardiology clearance: Sleep study: Diet journal: VTE risk score: VTE risk level: Rehab needs at discharge:
== END ==
LOC: BARWHC3 08:09
PROVIDERS: ATTEND Surgery
DX: Z46.51 Encounter for fitting and adjustment of gastric lap band (principal); E66.01 Morbid (severe) obesity due to excess calories; K21.9 Gastro-esophageal reflux disease without esophagitis; Z68.39 Body mass index [BMI] 39.0-39.9, adult; Z98.84 Bariatric surgery status; Z88.8 Allergy status to other drugs, medicaments and biological substances; Z91.018 Allergy to other foods
CPT/HCPCS: 99211

== ENCOUNTER → 2024-05-09 | Outpatient (CLI) | payer MEDICARE ==
[2024-05-09 09:30] VITALS: BP 130/79; PULSE 71; RESP 16; TEMP 97.6; BMI 39.0
--- NOTE | 2024-05-09 14:30 | P.HPBAR ---
Bariatric H&P - History & Physicial H&P Date: 05/09/24 History & Physicial: Visit/CC: f/u Patient initial contact: Initial weight: Initial weight in pounds: Height: 5 ft 6 in Initial BMI: Last weight: Current weight: 109.769 kg Current weight in pounds: 242.00 Current BMI: 39.0 [place] body weight (based on NIH guidelines): 64.41 kg Excess body weight loss: The patient is a 54 year-old M who presents for Bariatric Assessment. Patient presents today for bariatric follow-up. He has minimal complaints of GERD. His weight has been stable. Patient states that his diabetes has worsened. His blood sugar has been elevated. Past Medical History Past Medical History: Diabetes Mellitus, Eye Disorder, Hypertension, Skin Disorder, Thyroid Disorder Additional Past Medical History / Comment(s): IDDM type II, neuropathy of bilat hands/legs, bilateral retinal bleeds with surgery, occasional pedal edema, esophagitis/gastritis, pulmonary htn, lumbar spondylosis/occasional back pain, past thyroid benign nodules. History of Any Multi-Drug Resistant Organisms: None Reported Past Surgical History: Bariatric Surgery, Cholecystectomy Additional Past Surgical History / Comment(s): EGD, partial thyroidectomy, bilateral eye surgeries for retinal bleeds. Sleeve 11/03/22. Past Anesthesia/Blood Transfusion Reactions: No Reported Reaction Additional Past Anesthesia/Blood Transfusion Reaction / Comm: no hx blood transfusion Smoking Status: Never smoker - Past Family History Mother Family Medical History: No Reported History Additional Family Medical History / Comment(s): neuropathy Father Family Medical History: No Reported History Surgical - Exam Vital Signs Temp Pulse Resp BP 97.6 F 71 16 130/79 05/09/24 09:26 05/09/24 09:26 05/09/24 09:26 05/09/24 09:26 - General well developed, well nourished, no distress - Eyes PERRL - ENT normal pinna - Neck no masses - Respiratory normal expansion - Cardiovascular Rhythm: regular - Abdomen Abdomen: soft, non tender Bariatric Assessment & Plan Plan: More obesity, BMI 39. Patient's gerd is normal observed. His diabetes will be managed by his PCP. Patient was encouraged to improve his diet. Bariatric Checklist Checklist: Plan: Checklist: EGD: 1. Hiatal hernia: 2. H. Pylori: HgbA1c: Vitamin D: Smoking: Primary care physician referral: Dr. Meza Psychiatry clearance: Cardiology clearance: Sleep study: Diet journal: VTE risk score: VTE risk level: Rehab needs at discharge:
== END ==
LOC: BARWHC3 09:11
PROVIDERS: ATTEND Surgery
DX: E66.9 Obesity, unspecified (principal); K21.9 Gastro-esophageal reflux disease without esophagitis; E11.9 Type 2 diabetes mellitus without complications; Z68.39 Body mass index [BMI] 39.0-39.9, adult; Z98.84 Bariatric surgery status; Z91.018 Allergy to other foods; Z88.8 Allergy status to other drugs, medicaments and biological substances
CPT/HCPCS: 99211

== ENCOUNTER → 2024-07-28 | Outpatient (CLI) | payer MEDICARE ==
--- NOTE | 2024-07-28 11:35 | XR ---
EXAMINATION TYPE: XR shoulder complete LT DATE OF EXAM: 07/28/2024 11:30 AM INDICATION: Patient age:Male; 54 years old; Reason for study: M25.512 PAIN IN LEFT SHOULDER; pain COMPARISON: Chest radiograph 09/21/2009 TECHNIQUE: The left shoulder was examined in AP, internally rotated and scapular Y projections. . FINDINGS: No evidence of acute osseous pathology, joint dislocation, or soft tissue swelling. The remaining por tions of the visualized chest are unremarkable. IMPRESSION: No acute osseous pathology. [facility], , 07/28/2024 11:33 AM
== END | disposition home or self-care (01) ==
LOC: RADXRMAIN 11:02
PROVIDERS: ATTEND Family Medicine
DX: M25.512 Pain in left shoulder (principal)